=== PATIENT | male | born 1940 | race Caucasian/White ===

== ENCOUNTER 2023-09-15 14:22 | Inpatient (IN) | payer MEDICARE, SELFPAY ==
[2023-09-15] VITALS (11 sets, daily range): BP systolic 133–160; BP diastolic 72–103; PULSE 52–85; RESP 16–20; TEMP 36.2–37.2; O2SAT 98–100; BMI 18.1
--- NOTE | 2023-09-15 14:40 | EKG12_ITS ---
Test Reason : Blood Pressure : / mmHG Vent. Rate : 074 BPM Atrial Rate : 000 BPM P-R Int : 000 ms QRS Dur : 100 ms QT Int : 382 ms P-R-T Axes : 000 -83 -08 degrees QTc Int : 424 ms Atrial fibrillation Pulmonary disease pattern Incomplete right bundle branch block Left anterior fascicular block Abnormal ECG Confirmed by Jonathon Fletcher ([id number]), order editor ROBERT BONILLA ([id number]) on 09/16/2023 10:21:41 AM Referred By: Confirmed By:Jonathon Fletcher
--- NOTE | 2023-09-15 14:42 | EX.ED.DYSGE1 ---
HPI <LLUVIA Artis - Last Filed: 09/15/23 17:41> History of Present Illness Chief Complaint: Shortness of Breath Narrative Narrative: Patient is an 82-year-old male with history of Parkinson's disease, atrial fibrillation, hypertension, diabetes who presents to the emerged department for low pulse oxygenation. The patient has been feeling more short of breath over the last 3 weeks, much worse with exertion. Patient called into his PCP and was seen by the PA. When the PA walk the patient, the patient's pulse oxygenation was 60%. Patient is here for evaluation. He denies any cough, he denies any fever chills nausea or vomiting. Patient states when he is resting he is fine however when he gets up to move is when he feels that he is short of breath. [facility] <LLUVIA Artis - Last Filed: 09/15/23 17:41> [facility] Medical History (Updated 09/15/23 @ 17:40 by Gigi Seo) Atrial fibrillation Parkinson disease Hypertension Diabetes mellitus Home Medications ?Medication ?Instructions ?Recorded ?Last Taken ?Type amlodipine 2.5 mg tablet 2.5 mg PO DAILY BLOOD PRESSURE 09/15/23 09/15/23 History apixaban 5 mg tablet (Eliquis) 5 mg PO BID BLOOD THINNER 09/15/23 09/15/23 History carbidopa 25 mg-levodopa 100 mg 2 tab PO TID PARKINSONS 09/15/23 09/15/23 History tablet ipratropium bromide 42 mcg (0.06 2 spray intranasal TID RUNNY NOSE 09/15/23 09/14/23 History %) nasal spray lisinopril 10 mg tablet 10 mg PO DAILY BLOOD PRESSURE 09/15/23 09/15/23 History metoprolol tartrate 50 mg tablet 75 mg PO BID BLOOD PRESSURE 09/15/23 09/15/23 History mirtazapine 15 mg tablet 15 mg PO QHS DEPRESSION 09/15/23 09/15/23 History multivitamin (Daily Multi-Vitamin 1 tab PO DAILY HEALTH MAINTENANCE 09/15/23 09/15/23 History tablet) omeprazole 40 mg capsule,delayed 40 mg PO DAILY ACID REFLUX 09/15/23 09/15/23 History release pravastatin 10 mg tablet 10 mg PO DAILY CHOLESTEROL 09/15/23 09/15/23 History Allergy/AdvReac Type Severity Reaction Status Date / Time No Known Allergies Allergy Verified 09/15/23 14:25 Social History Smoking Status: Never smoker ROS <LLUVIA Artis - Last Filed: 09/15/23 17:41> ROS ED ROS Narrative Constitutional: Negative for fever, chills, weight loss. Positive for weakness Eyes: Negative for vision loss, vision change, double vision ENT: Negative for any sore throat, ear pain, congestion Cardiovascular: Negative for any palpitations. Positive for chest pain, chest tightness on exertion Respiratory: Negative for any cough, sputum production, hemoptysis, dyspnea, orthopnea. Dyspnea on exertion Gastrointestinal: Negative for any abdominal pain, nausea, vomiting, diarrhea, constipation, blood in stool, blood in vomit : Negative for any urinary frequency, dysuria, retention, blood in urine Muscle skeletal: Negative for any neck pain, back pain Neurological: Negative for any headache, syncope, dizziness Skin: Negative for any rashes, itching, abrasions, lacerations Psychiatric: Negative for any depression, anxiety, stress, suicidal ideation, homicidal ideation Hematologic: Negative for any excessive bruising, easy bleeding EXAM <LLUVAI Artis - Last Filed: 09/15/23 17:41> Physical Exam Narrative Exam Narrative: Vital signs reviewed. Patient's vital signs are stable although patient is at rest HEET: Head normocephalic atraumatic, TMs clear bilaterally. Posterior pharynx is clear, moist mucous membranes. Nares clear bilaterally. Neck: Supple with no lymphadenopathy or tenderness. No signs of meningismus. Cardiac: Regular rate and rhythm no murmurs gallops or rubs, equal peripheral pulses bilaterally. Respiratory: Diminished breath sounds to bilateral lower lobes. No chest tenderness. Abdomen: Soft, nontender, nondistended. No abdominal bruit or pulsatile masses. No hepatosplenomegaly Extremities: No peripheral edema, no signs of gross trauma or deformity. Active full range of motion of all extremities. Neuro: Cranial nerves II through XII intact, no focal neurological deficits. Skin: Clean dry and intact with no rash, purpura, petechiae, vesicles or pustules. Backs/flank: No CVA tenderness, no midline spinal tenderness, no deformity. Psych: Normal mood and affect. No SI, HI or acute psychosis. Const Vital Signs: 09/15/23 14:23 09/15/23 14:25 09/15/23 14:40 Temperature 97.2 F L 97.8 F Temperature Source Temporal Oral Pulse Rate 52 L 80 Respiratory Rate 18 16 Respiratory Effort Respiratory Depth Respiratory Pattern Blood Pressure 141/99 H 145/88 H Blood Pressure Mean 113 107 Pulse Ox 100 100 Oxygen Delivery Method Room Air Room Air 09/15/23 15:25 09/15/23 15:42 09/15/23 16:00 Temperature 98.0 F 98.3 F Temperature Source Oral Oral Pulse Rate 85 75 Respiratory Rate 16 16 Respiratory Effort Normal Short of Breath Respiratory Depth Normal Respiratory Pattern Normal Blood Pressure 147/93 H 142/95 H Blood Pressure Mean 111 110 Pulse Ox 100 100 Oxygen Delivery Method Room Air Room Air 09/15/23 16:22 Temperature Temperature Source Pulse Rate 79 Respiratory Rate 16 Respiratory Effort Respiratory Depth Respiratory Pattern Blood Pressure 160/73 H Blood Pressure Mean 102 Pulse Ox 98 Oxygen Delivery Method Room Air Positive cachectic General Appearance ED: cachectic Nutritional Appearance: cachectic <Dr. Evin Reece DO - Last Filed: 09/15/23 22:26> Physical Exam Const Vital Signs: 09/15/23 14:23 09/15/23 14:25 09/15/23 14:40 Temperature 97.2 F L 97.8 F Temperature Source Temporal Oral Pulse Rate 52 L 80 Respiratory Rate 18 16 Respiratory Effort Respiratory Depth Respiratory Pattern Blood Pressure 141/99 H 145/88 H Blood Pressure Mean 113 107 Pulse Ox 100 100 Oxygen Delivery Method Room Air Room Air 09/15/23 15:25 09/15/23 15:42 09/15/23 16:00 Temperature 98.0 F 98.3 F Temperature Source Oral Oral Pulse Rate 85 75 Respiratory Rate 16 16 Respiratory Effort Normal Short of Breath Respiratory Depth Normal Respiratory Pattern Normal Blood Pressure 147/93 H 142/95 H Blood Pressure Mean 111 110 Pulse Ox 100 100 Oxygen Delivery Method Room Air Room Air 09/15/23 16:22 Temperature Temperature Source Pulse Rate 79 Respiratory Rate 16 Respiratory Effort Respiratory Depth Respiratory Pattern Blood Pressure 160/73 H Blood Pressure Mean 102 Pulse Ox 98 Oxygen Delivery Method Room Air MDM <LLUVIA Artis - Last Filed: 09/15/23 17:41> MDM Lab Data Labs: Laboratory Results - last 24 hr 09/15/23 15:00 WBC 7.8 RBC 4.20 L Hgb 12.3 L Hct 38.6 L MCV 91.9 MCH 29.3 MCHC 31.9 L RDW Std Deviation 50.4 H RDW Coeff of Seth 15.0 H Plt Count 237 MPV 9.3 Immature Gran % (Auto) 0.500 Neut % (Auto) 70.7 H Lymph % (Auto) 21.9 [place] % (Auto) 6.1 Eos % (Auto) 0.5 Baso % (Auto) 0.3 Absolute Neuts (auto) 5.5 Absolute Lymphs (auto) 1.71 Nucleated RBC % 0 Sodium 135 L Potassium 4.1 Chloride 103 Carbon Dioxide 29.0 Anion Gap 3 L BUN 15 Creatinine 0.98 Estim Creat Clear Calc 49.96 Est GFR (MDRD) Af Amer 94 Est GFR (MDRD) Non-Af 78 BUN/Creatinine Ratio 15.3 Glucose 103 Calcium 9.2 Troponin I High Sens 11 B-Natriuretic Peptide 788.5 H Radiography Diagnostic Testing: Clinical Impression(s) from Imaging Studies Chest X-Ray 09/15/23 15:50 IMPRESSION: Right basilar infiltrate. Electronically Signed: Davon Hardy DO at 16:10 EDT Reading Location ID and State: [facility] / [place] Tel [phone], Service support , EKG Atrial fibrillation: Attestation: I personally reviewed and interpreted this EKG as follows: Comments: Atrial fibrillation rate of 74 bpm QRS duration 100 ms, no acute ST elevation, no acute infarct noted. Treatment and Re-Evaluation :: Differential diagnosis includes however is not limited to: Community-acquired pneumonia, PE, CHF, lung cancer, acute on chronic atrial fibrillation, fluid overload Patient at rest does not appear to be in any distress, patient's vital signs are stable while the patient is at rest. Patient will receive a full cardiac and respiratory workup. Patient will receive a two-view chest x-ray, laboratory values including CBC, BMP, BNP as well is a troponin. All radiologic examinations were read, reviewed by the emergency department attending. From these reads, a plan of care will be put in place. Patient's laboratory values show a normal CBC, patient's chemistries were unremarkable, troponin was negative at 11. Patient's chest x-ray two-view inter by ER physician shows a right basilar infiltrate. Patient states he has been coughing how is been unable to get any production. He states he been feeling worse over the last 3 weeks. Patient was ambulated here and on room air he dropped to 85%. Secondary to the 60% pulse oxygenation at his PCPs office, the 85% here, I do believe the patient would benefit from admission. Patient be given IV antibiotics, Rocephin, Zithromax. Patient will be admitted to the hospital. <Dr. Evin Reece DO - Last Filed: 09/15/23 22:26> [facility] Lab Data Attestation: I reviewed the patient's lab results. Labs: Laboratory Results - last 24 hr 09/15/23 15:00 WBC 7.8 RBC 4.20 L Hgb 12.3 L Hct 38.6 L MCV 91.9 MCH 29.3 MCHC 31.9 L RDW Std Deviation 50.4 H RDW Coeff of Seth 15.0 H Plt Count 237 MPV 9.3 Immature Gran % (Auto) 0.500 Neut % (Auto) 70.7 H Lymph % (Auto) 21.9 [place] % (Auto) 6.1 Eos % (Auto) 0.5 Baso % (Auto) 0.3 Absolute Neuts (auto) 5.5 Absolute Lymphs (auto) 1.71 Nucleated RBC % 0 Sodium 135 L Potassium 4.1 Chloride 103 Carbon Dioxide 29.0 Anion Gap 3 L BUN 15 Creatinine 0.98 Estim Creat Clear Calc 49.96 Est GFR (MDRD) Af Amer 94 Est GFR (MDRD) Non-Af 78 BUN/Creatinine Ratio 15.3 Glucose 103 Calcium 9.2 Troponin I High Sens 11 B-Natriuretic Peptide 788.5 H Radiography Diagnostic Testing: Clinical Impression(s) from Imaging Studies Chest X-Ray 09/15/23 15:50 IMPRESSION: Right basilar infiltrate. Electronically Signed: Davon Hardy DO at 16:10 EDT Reading Location ID and State: [facility] / [place] Tel [phone], Service support , Treatment and Re-Evaluation :: Differential diagnosis includes however is not limited to: Community-acquired pneumonia, PE, CHF, lung cancer, acute on chronic atrial fibrillation, fluid overload Patient at rest does not appear to be in any distress, patient's vital signs are stable while the patient is at rest. Patient will receive a full cardiac and respiratory workup. Patient will receive a two-view chest x-ray, laboratory values including CBC, BMP, BNP as well is a troponin. All radiologic examinations were read, reviewed by the emergency department attending. From these reads, a plan of care will be put in place. Patient's laboratory values show a normal CBC, patient's chemistries were unremarkable, troponin was negative at 11. Patient's chest x-ray two-view inter by ER physician shows a right basilar infiltrate. Patient states he has been coughing how is been unable to get any production. He states he been feeling worse over the last 3 weeks. Patient was ambulated here and on room air he dropped to 85%. Secondary to the 60% pulse oxygenation at his PCPs office, the 85% here, I do believe the patient would benefit from admission. Patient be given IV antibiotics, Rocephin, Zithromax. Patient will be admitted to the hospital. Attending note: Patient seen and evaluated with acrobatic dancer. I perform my own [id number] evaluation. I agree with the plan of work-up. Three-view history of cough worsening dyspnea with exertion. PCP office reported pulse ox 60% with ambulation. Arrived at rest normal lung sounds pulse ox 100% on room air. Workup initiated, 2 view chest x-ray interpreted by myself read by radiology right basilar infiltrate. White count is normal. Patient ambulated pulse ox dropped to 85% on room air. Placed on oxygen. Rocephin and Zithromax started. Patient admitted to medicine service. Discharge Plan Dx/Rx/DC Orders Clinical Impression: Community acquired pneumonia, Hypoxia, Weakness Disposition Disposition: Acute Care Hospital [facility] Discharge Date/Time: 09/15/23 17:48
[2023-09-15 15:08] LABS: Absolute Lymphocyte Count 1.71 X10^3/uL (0.83-4.51); Absolute Neutrophil Count 5.5 X10^3/uL (2.0-7.7); Basophil# 0.02 X10^3/uL; Basophil% 0.3 % (0-1); Eosinophil# 0.04 X10^3/uL; Eosinophils% 0.5 % (0-5); Hematocrit 38.6 % (40-54); Hemoglobin 12.3 g/dL (13.0-16.5); Lymphocyte # 1.71 X10^3/ul (0.83-4.51); Lymphocyte % 21.9 % (19-41); Mean Corp Hgb Conc 31.9 g/dL (32-36); Mean Corpuscular Hgb 29.3 pg (27.0-32.0); Mean Corpuscular Volume 91.9 fL (80-94); Mean Platelet Vol. 9.3 fl (6.2-12.0); Monocyte# 0.48 X10^3/uL; Monocyte% 6.1 % (0-10); NRBC Flagged by Analyzer 0 % (0-5); Neutrophil # 5.53 X10^3/uL (2.7-7.7); Neutrophil % 70.7 % (47-70); Platelet Count 237 K/mm3 (150-450); RBC Distribution Width SD 50.4 fl (35.1-43.9); White Blood Count 7.8 K/mm3 (4.4-11.0)
[2023-09-15 15:26] LABS: Anion Gap 3 (5-15); BUN 15 mg/dL (7-18); BUN/Creat Ratio 15.3 RATIO (10-20); Calcium,Total 9.2 mg/dL (8.5-10.1); Chloride 103 mmol/L (98-107); Creatinine, Serum 0.98 mg/dL (0.70-1.30); EST Glomerular Filtration Rate 78 mL/min (>60); Est Glom Filt Rate - Afr Amer 94 mL/min (>60); Estimated Creatinine Clearance 49.96 ml/min; Glucose 103 mg/dL (74-106); Potassium 4.1 mmol/L (3.5-5.1); Sodium Level 135 mmol/L (136-145); Troponin-I HS 11 pg/mL (3.0-78.0)
--- NOTE | 2023-09-15 15:50 | RAD_ITS ---
INDICATION: shortness of breath EXAMINATION/TECHNIQUE: X-RAY - XR Chest 2 Views COMPARISON: FINDINGS: LINES/DEVICES: None. LUNGS: There is a right basilar infiltrate. No pneumothorax. MEDIASTINUM AND CARDIOVASCULAR STRUCTURES: Cardiac silhouette not enlarged. Central airways and mediastinal contour are unremarkable. BONES AND SOFT TISSUES: Degenerative vertebral changes. RAD/Chest PA and Lateral IMPRESSION: Right basilar infiltrate. Electronically Signed: Davon Hardy DO at 16:10 EDT ,
[2023-09-15] MEDS: Ceftriaxone 1 GM/50 ML BAG IV (16:55)
--- NOTE | 2023-09-15 17:03 | HP.PCM_ITS ---
HPI - General General Date of Admission: 09/15/23 Date of Service: 09/15/23 Chief Complaint: shortness of breath HPI Narrative FARRAH HAYES, is a 82 M with a PMH as outlined who presents via the ED on 09/15/2023 with a complaint of shortness of breath. He had been feeling short over the past 3 weeks, which worsened with exertion. He denied any cough, chest pain, palpitations, dizziness, nausea, vomiting or any other symptoms. Review of systems was otherwise negative. The shortness of breath was worsened by exertion. He denies any history of PE and has been cooperative with his Eliquis which he takes for A-fib. He says his most recent long distance travel was a drive to [place] and this was back in April 2023. He says he has lost about 90 pounds over the last year and he says this is due to his Parkinson's disease as he is not able to eat well and has had some dysphagia as well. Vitals in the ED were BP of 160/73, MD of 79, RR of 16 and temp of 98.3F. He was saturating at 98% on room air. CBC showed hb of 12.3, wbc of 7.8, platelets of 237.Chemistry showed sodium of 135, potassium of 4.1 nd Cr of 0.98. Initial troponin was negative and BNP was pending at time of my review. CXR showed a right basilar infiltrate and sputum was negative for covid, influenza A or B, or RSV. He is being admitted to be managed for hypoxia due to right lower lobe pneumonia [facility] Medical History (Updated 09/15/23 @ 17:40 by Gigi Seo) Atrial fibrillation Parkinson disease Hypertension Diabetes mellitus Home Medications ?Medication ?Instructions ?Recorded ?Last Taken ?Type amlodipine 2.5 mg tablet 2.5 mg PO DAILY BLOOD PRESSURE 09/15/23 09/15/23 History apixaban 5 mg tablet (Eliquis) 5 mg PO BID BLOOD THINNER 09/15/23 09/15/23 History carbidopa 25 mg-levodopa 100 mg 2 tab PO TID PARKINSONS 09/15/23 09/15/23 History tablet ipratropium bromide 42 mcg (0.06 2 spray intranasal TID RUNNY NOSE 09/15/23 09/14/23 History %) nasal spray lisinopril 10 mg tablet 10 mg PO DAILY BLOOD PRESSURE 09/15/23 09/15/23 History metoprolol tartrate 50 mg tablet 75 mg PO BID BLOOD PRESSURE 09/15/23 09/15/23 History mirtazapine 15 mg tablet 15 mg PO QHS DEPRESSION 09/15/23 09/15/23 History multivitamin (Daily Multi-Vitamin 1 tab PO DAILY HEALTH MAINTENANCE 09/15/23 09/15/23 History tablet) omeprazole 40 mg capsule,delayed 40 mg PO DAILY ACID REFLUX 09/15/23 09/15/23 History release pravastatin 10 mg tablet 10 mg PO DAILY CHOLESTEROL 09/15/23 09/15/23 History Allergy/AdvReac Type Severity Reaction Status Date / Time No Known Allergies Allergy Verified 09/15/23 14:25 Social History Smoking Status: Never smoker ROS Constitutional Constitutional: Reports fatigue, malaise and weakness; Denies anorexia, chills or fever(s) Eyes Eyes: Denies change in vision ENT HEENT: Denies dysphagia, headache(s), hearing loss, sore throat or throat swelling Cardiovascular Cardiovascular: Denies chest pain, edema, orthopnea, palpitations, paroxysmal nocturnal dyspnea or syncope Respiratory/Chest Respiratory/Chest: Reports shortness of breath with exertion; Denies cough, hemoptysis, shortness of breath at rest or wheezing Gastrointestinal Gastrointestinal: Denies constipation, diarrhea, nausea or vomiting Genitourinary Genitourinary: Denies dysuria Musculoskeletal Musculoskeletal: Denies back pain, limited range of motion, muscle weakness or neck pain Neurologic Neurologic: Denies confusion, dizziness, focal weakness, headache(s) or numbness Psychiatric Psychiatric: Denies anxiety or depression Hematologic/Lymphatic Hematologic/Lymphatic: Denies anemia Vital Signs Vital Signs Vital Signs: 09/15/23 14:23 09/15/23 14:25 09/15/23 14:40 Temperature 97.2 F L 97.8 F Temperature Source Temporal Oral Pulse Rate 52 L 80 Respiratory Rate 18 16 Respiratory Effort Respiratory Depth Respiratory Pattern Blood Pressure 141/99 H 145/88 H Blood Pressure Mean 113 107 Pulse Ox 100 100 Oxygen Delivery Method Room Air Room Air 09/15/23 15:25 09/15/23 15:42 09/15/23 16:00 Temperature 98.0 F 98.3 F Temperature Source Oral Oral Pulse Rate 85 75 Respiratory Rate 16 16 Respiratory Effort Normal Short of Breath Respiratory Depth Normal Respiratory Pattern Normal Blood Pressure 147/93 H 142/95 H Blood Pressure Mean 111 110 Pulse Ox 100 100 Oxygen Delivery Method Room Air Room Air 09/15/23 16:22 Temperature Temperature Source Pulse Rate 79 Respiratory Rate 16 Respiratory Effort Respiratory Depth Respiratory Pattern Blood Pressure 160/73 H Blood Pressure Mean 102 Pulse Ox 98 Oxygen Delivery Method Room Air Weight Weight: 134 lb Body Mass Index (BMI) 18.1 Physical Exam Const alert, oriented x3 and no apparent distress Constitutional Narrative: frail General Appearance: cooperative HEENT normocephalic, head/scalp atraumatic, moist oral mucous membranes and oropharynx normal Eyes PERRL and EOMs intact bilaterally Neck no lymphadenopathy and supple Lymph Lymphatic: no lymphadenopathy noted and no lymphedema noted Resp Resp Narrative: moderately diminished breath sounds bibasally, no wheezes or crackles. On room air. Cardio regular rate, regular rhythm, S1 normal heart sound, S2 normal heart sound and no murmurs GI normal to inspection, nondistended, normoactive bowel sounds, soft to palpation, non-tender and non-distended Extremity normal capillary refill, no clubbing, cyanosis or edema and no calf tenderness General Extremity: no tenderness to palpation of joints or extremities Skin General Skin Exam: no breakdown Neuro CN's II-XII intact bilaterally, no focal motor deficits, no sensory deficits noted and deep tendon reflexes 2+ bilaterally Motor Exam: strength 5/5 throughout and general weakness Psych thought process normal and cooperative Appearance: appropriate Results Lab / Micro Data 09/15/23 15:00 09/15/23 15:00 Labs: Laboratory Results - last 24 hr 09/15/23 15:00: WBC 7.8, RBC 4.20 L, Hgb 12.3 L, Hct 38.6 L, MCV 91.9, MCH 29.3, MCHC 31.9 L, RDW Std Deviation 50.4 H, RDW Coeff of Seth 15.0 H, Plt Count 237, MPV 9.3, Immature Gran % (Auto) 0.500, Neut % (Auto) 70.7 H, Lymph % (Auto) 21.9, [place] % (Auto) 6.1, Eos % (Auto) 0.5, Baso % (Auto) 0.3, Absolute Neuts (auto) 5.5, Absolute Lymphs (auto) 1.71, Nucleated RBC % 0, Sodium 135 L, Potassium 4.1, Chloride 103, Carbon Dioxide 29.0, Anion Gap 3 L, BUN 15, Creatinine 0.98, Estim Creat Clear Calc 49.96, Est GFR (MDRD) Af Amer 94, Est GFR (MDRD) Non-Af 78, BUN/Creatinine Ratio 15.3, Glucose 103, Calcium 9.2, Troponin I High Sens 11 Micro: Microbiology 09/15/23 15:40 Mucosa - Nasopharyngeal SARS-CoV-2, Influenza & RSV (PCR) - Final Imaging Radiology Impression Chest X-Ray 09/15/23 15:50 IMPRESSION: Right basilar infiltrate. Electronically Signed: Davon Hardy DO at 16:10 EDT , Assessment & Plan Assessment/Plan (1) Hypoxia: (2) Community acquired pneumonia: (3) Weakness: PLAN: Plan #Hypoxia due to community acquired pneumonia * admit to med surg. * check urine for strep and legionella. CHeck sputum culture * start on IV ceftriaxone and azithromycin * Hydrate gently with iVF NS @ 125cc/hr * breathing treatment with bronchodilators * titrate oxygen to maintain sats .90% * #Elevated BNP: * BNP 788.5. Patient however does not have any evidence of fluid overload though he does get short of breath with exertion. * Does not have a history of heart failure. * In light of this we will order 2D echo. * Stop IV fluids and diurese with Lasix to see if that will help with shortness of breath. * #Hypertension: on lisinopril and amlodipine. IV hydralazine prn #Parkinson's disease: * on levodopa-carbidopa. * Complains of weight loss of about 90 pounds over the last year which she states is due to dysphagia which he attributes to his Parkinson's disease. * Will consult speech therapy to evaluate for dysphagia. * He states he has seen speech therapy multiple times over the last year. * #Dysphagia: as above. #Depression: on mirtazapine. #hyperlipidemia: on statin DVT prophylaxis: lovenox Code status: full code * Patient counseled extensively about different types of CODE STATUS including full code, DNR CCA and DNR CCA. Patient elects to be full code. * Total dcan-pm-lnle time 17 minutes. Charges/Coding Visit Charges Inpatient E&M: 96389 Init Hosp L3 Procedures Hospitalists Procedures: 57110 Advncd Care Plan 30 Min
[2023-09-15] MEDS: Azithromycin 500 MG in Dextrose 5%-Water (250mL Bag) 250 ML 250 MG IV (17:41)
[2023-09-15 17:52] LABS: BNP,B-Type NATRIURETIC PEPTIDE 788.5 pg/mL (0-100)
--- NOTE | 2023-09-15 19:51 | ECHOD_ITS ---
Reason For Study: DYSPNEA Procedure This was a 2D Doppler, Color Flow transthoracic echocardiogram. Technically difficult due to body habitus. Definity deferred due to off axis windows. Exam performed portable in patient room. Left Ventricle Normal LV size. The estimated ejection fraction is 65 %. Unable to assess diastolic dysfunction. No regional wall motion abnormalities noted. Right Ventricle Normal RV size. Normal systolic function. Atria The left atrium is mildly enlarged. Normal right atrium. No doppler evidence for ASD. Mitral Valve There is no mitral valve stenosis. No mitral valve insufficiency. Tricuspid Valve There is no tricuspid stenosis. Trivial tricuspid valve insufficiency. Unable to estimate RV systolic pressure due to insufficient tricuspid regurgitant envelope. Aortic Valve Trisinus/trileaflet aortic valve. There is no aortic stenosis. No aortic valve insufficiency. Pulmonic Valve There is no pulmonic valvular stenosis. No pulmonic valve insufficiency. Great Vessels Normal aortic root. Pericardium/Pleural No pericardial effusion. MMode/2D Measurements & Calculations LVIDd: 2.9 cm IVSd: 1.1 cm LAV(MOD-bp): 69.6 ml LVIDs: 2.6 cm LVPWd: 1.3 cm LAV(MOD-bp) Indexed: 38.7 ml/m2 FS: 13.2 % LAV(MOD-sp2): 75.6 ml LAV(MOD-sp4): 67.7 ml TAPSE: 1.5 cm LA A4 area: 22.8 cm2 RA A4 area: 10.4 cm2 Doppler Measurements & Calculations MV E max terrance: 88.1 cm/sec Ao V2 max: 85.1 cm/sec LV V1 max: 62.3 cm/sec Ao max P.9 mmHg LV V1 max P.6 mmHg Ao V2 mean: 53.4 cm/sec LV V1 mean P.87 mmHg Ao mean P.4 mmHg LV V1 mean: 44.7 cm/sec Ao V2 VTI: 18.3 cm LV V1 VTI: 13.8 cm AV (velocity ratio): 0.75 ECHO/Echo Complete Interpretation Summary The estimated ejection fraction is 65 %. Unable to assess diastolic dysfunction. The left atrium is mildly enlarged. Ordering Physician: Sheela Quinn Referring Physician: JUANY PACHECO Performed By: Abena Deleon RCS
[2023-09-15] MEDS: Ipratropium Bromide 0.06% NASAL SPRAY 2 SPRAY NASAL (21:37)
[2023-09-15] MEDS: Glycerin/Hypromellose/PEG400 15 ml Bottle 1 DRP EACH EYE (21:40)
[2023-09-15] MEDS: Pravastatin 20 MG Tablet 10 MG PO (21:41)
[2023-09-15] MEDS: APIXABAN 5 MG TABLET PO (21:41)
[2023-09-15] MEDS: Metoprolol Tartrate 50 MG Tablet 75 MG PO (21:42)
[2023-09-15] MEDS: Mirtazapine 15 MG Tablet PO (21:42)
[2023-09-15] MEDS: Furosemide 40 MG/4 ML Vial IV (21:43)
[2023-09-16] MEDS: Acetaminophen 325 MG Tablet 650 MG PO (02:08)
[2023-09-16 02:11] VITALS: BP 115/90; PULSE 92; RESP 18; TEMP 36.8; O2SAT 95
[2023-09-16] MEDS: Ipratropium Bromide 0.06% NASAL SPRAY 2 SPRAY NASAL ×3 (06:49→21:11)
[2023-09-16] MEDS: Carbidopa/Levodopa 25/100 Tablet PO ×3 (06:50→15:33)
[2023-09-16 07:16] LABS: Absolute Neutrophil Count 3.8 X10^3/uL (2.0-7.7); Basophil# 0.04 X10^3/uL; Basophil% 0.6 % (0-1); Eosinophil# 0.12 X10^3/uL; Eosinophils% 1.8 % (0-5); Hematocrit 34.4 % (40-54); Hemoglobin 11.1 g/dL (13.0-16.5); Lymphocyte % 32.4 % (19-41); Mean Corp Hgb Conc 32.3 g/dL (32-36); Mean Corpuscular Hgb 29.6 pg (27.0-32.0); Mean Corpuscular Volume 91.7 fL (80-94); Mean Platelet Vol. 9.2 fl (6.2-12.0); Monocyte# 0.64 X10^3/uL; Monocyte% 9.4 % (0-10); NRBC Flagged by Analyzer 0 % (0-5); Neutrophil # 3.78 X10^3/uL (2.7-7.7); Neutrophil % 55.5 % (47-70); Platelet Count 230 K/mm3 (150-450); RBC Distribution Width CV 14.9 % (11.6-14.6); RBC Distribution Width SD 49.6 fl (35.1-43.9); Red Blood Count 3.75 M/mm3 (4.6-6.2); White Blood Count 6.8 K/mm3 (4.4-11.0)
[2023-09-16 07:19] VITALS: O2SAT 96
[2023-09-16 07:47] LABS: Anion Gap 4 (5-15); BUN 16 mg/dL (7-18); BUN/Creat Ratio 15.5 RATIO (10-20); Calcium,Total 9.3 mg/dL (8.5-10.1); Chloride 102 mmol/L (98-107); Creatinine, Serum 1.03 mg/dL (0.70-1.30); EST Glomerular Filtration Rate 73 mL/min (>60); Est Glom Filt Rate - Afr Amer 89 mL/min (>60); Estimated Creatinine Clearance 47.54 ml/min; Glucose 95 mg/dL (74-106); Potassium 3.6 mmol/L (3.5-5.1); Sodium Level 138 mmol/L (136-145)
--- NOTE | 2023-09-16 08:11 | CT_ITS ---
STUDY: CTA CHEST REASON FOR EXAM: Male, 82 years old. Abnormal chest x-ray RADIATION DOSAGE (If Supplied By Facility): CTDIvol = ( 14.24 ) mGy, DLP = ( 350.28 ) mGycm TECHNIQUE: The examination was performed with the intravenous administration of IV 75mL Isovue-370. Post-processing of the angiographic images was performed, with multiplanar reformation and 3D reconstruction. Individualized dose optimization techniques were used for this CT. COMPARISON: Chest x-ray. FINDINGS: Normal enhancement of the main pulmonary artery and right and left pulmonary arteries. Normal enhancement of the bilateral peripheral pulmonary arteries. There is no demonstrated pulmonary embolism. There is atherosclerotic calcification of the aortic arch with tortuosity. There is no demonstrated aortic dissection. There are calcifications of the coronary arteries. Normal mediastinum. Normal hilar regions. Normal visualized trachea and bronchi. The lungs are well expanded. There is calcified granuloma in the left lower lobe. There are mild lower lung groundglass increased opacities. There is right middle lobe airspace consolidation. There is moderate right pleural effusion. Normal chest wall structures. There are degenerative changes of thoracic spine. There is increased kyphosis of the thoracic spine. Normal visualized upper abdomen. CT/CTA Chest W/WO Contrast IMPRESSION: CTA chest examination, without a demonstrated pulmonary embolism or arterial dissection. Right middle lobe infiltrate. Right pleural effusion. Electronically Signed: Edgar Souza MD at 9:09 EDT ,
[2023-09-16 09:23] VITALS: BP 129/74; PULSE 71; RESP 16; TEMP 36.8; O2SAT 95
[2023-09-16] MEDS: Furosemide 40 MG/4 ML Vial IV ×2 (09:36→17:22)
[2023-09-16] MEDS: APIXABAN 5 MG TABLET PO (09:36)
[2023-09-16] MEDS: Multivitamins,Therapeutic Tablet 1 TABLET PO (09:36)
[2023-09-16 09:37] VITALS: PULSE 71
[2023-09-16] MEDS: Metoprolol Tartrate 50 MG Tablet 75 MG PO ×2 (09:37→21:11)
[2023-09-16] MEDS: Pantoprazole Sodium 40 MG Tablet PO (09:38)
[2023-09-16] MEDS: Lisinopril 10 MG Tablet PO (09:38)
[2023-09-16] MEDS: amLODIPine 2.5 MG Tablet PO (09:38)
[2023-09-16] MEDS: Ensure Plus High Protein 120 ML LIQUID PO (09:46)
--- NOTE | 2023-09-16 13:05 | SP.MBSS_ITS ---
Modified Barium Swallow Patient Information Study Date: 09/16/23 Study Time: 12:30 Direct Billable Minutes: 89 Total Minutes procedure & reportin Diagnosis: PNA J18.9; Hypoxia R09.02 Referring Physician: Shu Durbin Reason for Referral: Objectively assess swallow function, assess risk for aspiration, and determine recommendations for least restrictive diet textures and compensatory strategies to improve safety of swallow. Medical History: PMH: Parkinson's disease, A fib, HTN, Diabetes The patient presented to [facility] ED 09/15/23 with SOB over the past few weeks, which worsened with exertion. He reported that he has lost about 90 pounds over the last year and he says this is due to his Parkinson's disease as he is not able to eat well and has had some dysphagia. Chest CT 09/15/23 IMPRESSION: CTA chest examination, without a demonstrated pulmonary embolism or arterial dissection. Right middle lobe infiltrate. Right pleural effusion. CXR 09/15/23 showed a right basilar infiltrate. He was being admitted to be managed for hypoxia due to right lower lobe pneumonia. He was referred for ST consult due to concerns for swallowing difficulty. Patient reports having had EGD and 2 MBSS with the most recent completed in [place] in March 2024. He reported no esophageal findings per patient report. He reported during modified barium swallow study getting 1 sip of liquids, aspirating, then he had the study stopped. He had a physician and speech therapist recommend thickener; however, he does not believe thickener was trialed during the barium swallow test. He had speech therapy for strengthening of his swallow and was recommended for chin tuck. He has been consuming thin liquids at home. BSE 09/16/23 recommended minced and moist textures / thin liquids with recommendation for MBSS this afternoon. Current Diet Ordered: Minced and moist textures / Thin liquids Dentition: Edentulous Mental Status: Impaired (Required verbal repetition to execute recommended strategies during the assessment) Respiratory Status: Oxygenating on Room Air Penetration-Aspiration Scale Penetration-Aspiration Scale: OBJECTIVE ASSESSMENT OF SWALLOW FUNCTION (QUANTITATIVE ? PER TRIAL): PENETRATION / ASPIRATION SCALE (OVALLE): 1 = does not enter airway 2 = enters airway/above vocal folds/ejected 3 = enters airway/above vocal folds/not ejected 4 = enters airway/contacts vocal folds/ejected 5 = enters airway/contacts vocal folds/not ejected 6 = enters airway/below vocal folds/ejected 7 = enters airway/below vocal folds/not ejected despite effort 8 = enters airway/below vocal folds/no effort VIDEOFLOROSCOPIC SCALE SCORE (OVALLE): Grade I = aspiration of material that has penetrated into the laryngeal vestibule, intact cough reflex Grade II = aspiration < 10 % of the bolus, intact cough reflex Grade III = aspiration of < 10 % of the bolus, reduced cough reflex or aspiration of > 10 % of the bolus, intact cough reflex Grade IV = aspiration of > 10 % of the bolus, reduced cough reflex Penetration-Aspiration Scale Score Thin Liquid via teaspoon: Result: 8= enters airway/below vocal folds/no effort Thin Liquid via teaspoon Chin tuck: Result: 8= enters airway/below vocal folds/no effort [place] Thick Liquid via small single sip: cup: Result: 3= enters airways/above vocal folds/not ejected (post prandial aspiration of previous trial) Pudding via teaspoon: Result: 1= does not enter airway Comment: Esophageal screen - Retention of pudding in upper esophageal sphincter with retrograde flow through the UES to the pyriforms. Thin Liquid via small single sip: cup Chin tuck: Result: 5= enters airways/contacts vocal folds/not ejected Comment: Cued cough and re-swallow, which the patient executed delayed after verbal repetition of instruction from STRATEGIC PLANNING SPECIALIST [place] Thick Liquid via small single sip: cup Chin tuck: Result: 8= enters airway/below vocal folds/no effort Thin Liquid via single cup sip with chin tuck and cough and re-swallow: Result: 5= enters airways/contacts vocal folds/not ejected Honey Thick Liquid via teaspoon: Result: 7= enters airways/below vocal folds/not ejected despite effort Comment: Post prandial aspiration of previous trial, as well. STRATEGIC PLANNING SPECIALIST repositioned the patient to be slightly reclined so that his neck posture was more upright for remaining trials due to kyphotic posture Thin Liquid via small single sip: cup Effortful swallow: Result: 7= enters airways/below vocal folds/not ejected despite effort [place] Thick Liquid via small single sip: cup Trial 2: Result: 7= enters airways/below vocal folds/not ejected despite effort [place] Thick Liquid via small single sip: cup Chin tuck Trial 2: Result: 5= enters airways/contacts vocal folds/not ejected Oral Phase Labial Seal: Interlabial escape, no progression to anterior lip Tongue Control During Bolus Hold: Posterior escape of greater than half of bolus Bolus Transport/Lingual Motion: Repetitive/disorganized tongue motion Oral Residue: Residue collection on oral structures Pharyngeal Phase Initiation of Pharyngeal Swallow: Bolus head in pyriforms Soft Palate Elevation: Trace column of contrast/air between soft palate and pharyngeal wall Laryngeal Elevation: Partial superior movement thyroid cart/partial apprx aryt- epig petiole Anterior Hyoid Excursion: Partial anterior movement Epiglottic Movement: Partial inversion Laryngeal Vestibule Closure at Height of Swallow: Incomplete; narrow column of air/contrast in laryngeal vestibule Pharyngeal Stripping Wave: Present - diminished Pharyngoesophageal Segment Opening: Minimal distension and minimal duration; marked obstruction of flow (Thin by tsp) Tongue Base Retraction: Wide column of contrast between tongue base & post. pharyngeal wall Pharyngeal Residue: Majority of contrast within or on pharyngeal structures (pudding, thin by tsp trial 1) Esophageal Phase Esophageal Clearance: Esophageal retention w/ retrograde flow through pharyngoesophageal seg (pudding) Diagnosis/Impression Diagnosis: Moderate-severe oropharyngeal dysphagia R13.12 Impression: The oral phase is primarily marked by... -Decreased bolus control with >1/2 of the bolus spilling posteriorly to the pyriforms prior to swallow onset most notable by thin liquids via cup with effortful swallow. -Lingual pumping for A-P transport of pudding -Mild oral residue of pudding after the swallow, which mostly cleared with independent initiation of multiple swallows. -Did not complete cookie trial due to concerns for choking with poor pharyngeal clearance of pudding. The pharyngeal phase is primarily marked by... -Decreased airway closure during the swallow due to decreased anterior hyoid excursion, partial epiglottic inversion, and decreased laryngeal elevation. -Moderately-severely decreased tongue base retraction, moderately-severely decreased UES opening/duration, and minimal pharyngeal stripping wave with resulting moderate-severe pharyngeal residues after the swallow most notable with pudding. Multiple swallows helped to clear pudding trial. -SILENT aspiration of thin liquids by tsp, thin liquids by cup, nectar/mildly thick liquids by cup. Overt aspiration of thin liquids by cup w/ effortful swallow, honey thick by tsp, and nectar/mildly thick liquids by cup. Use of cough and re-swallow did not prevent aspiration, but it was somewhat effective in decreasing residues remaining in the laryngeal vestibule. The esophageal phase is primarily marked by... -Esophageal retention of pudding in upper esophageal sphincter with retrograde flow through the UES to the pyriforms. Recommendations Diet: Mechanical Soft Textures (Minced and Moist Textures - IDDSI Level 5) and [place]-thick Liquids (Mildly Thick Liquids - IDDSI Level 2) Compensatory Strategies: Small Bites (Chin tuck and 3 swallows per bite), Small Sips (Chin tuck, cough and re-swallow each sip), Slow Rate, Alternate bites/solids and sips/liquids, Sitting upright (Neck upright 90 degrees [Pt slightly reclined]) and Remain sitting upright for 30 minutes after PO intake Supervision: 1:1 Close Supervision Recommend Repeat Modified Barium Swallow: TBD Need for Skilled Speech Therapy Services: Yes Comment: -Train the patient in use of strategies to decrease risk for aspiration. -Ongoing assessment of diet tolerance of recommended textures. Would not advance solids prior to GI intervention for poor UES opening/duration and repeat MBSS. -Train the patient in oropharyngeal exercise program to improve bolus control, tongue base retraction, airway closure, and UES opening/duration (lingual re sistance, Samantha, Vanessa, Shaker). Recommended Referrals: GI Consult (Poor UES opening/duration) Education Completed: 1. Described result of evaluation., 2. Pt understands evaluation & agrees with goals and treatment plan. and 7. Pt requires further education on strategies & risks. Status Active ST Patient: Active Contact Information [facility] Speech Therapy:: Aruna Reeves M.A. [facility]-STRATEGIC PLANNING SPECIALIST? Speech-Language Pathologist?? [facility] [address]?? [place] [address]?? [email or web address]?? [phone]
--- NOTE | 2023-09-16 15:15 | CASEMGMT ---
Addendum entered by Elizabeth Graf 09/16/23 16:37: SUSANNAH GILES into pt room, pt son at bedside. Discussed HHC with pt, he declines. Son in background shaking his head yes. Discussed how HHC could benefit pt, pt declines still. Pt is aware that if he changes his mind once home, he can contact his PCP. Original Note: SUSANNAH GILES Assessment: Face to Face with pt for initial transition planning/care coordination assessment. SUSANNAH GILES introduced self and role at [facility], pt voices understanding and consents to assessment. Pt is A&O x4 and answers all questions appropriately at this time. Pt sitting up in chair in no distress on RA. Care providers, pharmacy, and demographics verified/updated. Admitting Dx: hypoxia, CAP PCP:Jose Maria Specialists:gab Granados Pharmacy: [facility] Insurance: [facility] Prescription Benefit: yes LNOK: Yousif Esquivel, son Living Arrangements: Pt lives with oldest son in a two story home with 3 steps to enter. Pt reports he is I in ADL's and his son performs IADLs. Pt denies concerns at home. Transportation: Pt drives self and denies concerns with transportation. DME:25 grab bars spread throughout home, 2 rollators, walker, cane, stairlift to the upstairs, BGM with sufficient supply of strips and lancets although pt states he was told he does not need to check any longer. HHC/SNF:Denies hx of HHC, has been to SNF in [place] Pt states no concerns with going home at time of dc. Pt states son is able to assist as needed. Pt uses rollator and feels his strength is baseline. Pt states no further concerns/needs. CM to follow. Advised pt to ask CM if any further question/concerns/needs arise, voices understanding. Pt Goal: Home Plan: Home Ye DAVALOS CM
[2023-09-16] MEDS: Glycerin/Hypromellose/PEG400 15 ml Bottle 1 DRP EACH EYE (15:23)
--- NOTE | 2023-09-16 15:28 | PCM.PN.HOSP ---
Reason for Visit Reason for Visit: Shortness of breath Subjective Subjective Mr. Esquivel is an 82-year-old white male with a history of Parkinson disease who presented to emergency department at [facility] for shortness of breath on 09/16/2023. On presentation he reported that he had been feeling more short of breath for about 3 weeks which was worse with exertion. He denied any cough, chest pain, palpitations, nausea, vomiting or any other significant symptoms associated with the shortness of breath. He had denied any history of pulmonary embolism and takes Eliquis at baseline for A-fib and has been compliant with this. He indicated he lost about 90 pounds over the last year and feels it is related to his Parkinson disease. He states he has difficulty eating and at times he will cough after drinking. He also complained that he feels like things intermittently will get stuck in his upper throat while he is swallowing. Vital signs on presentation demonstrated temperature of 98.3, blood pressure was 160/73, heart rate was 79, respiratory rate 16 oxygen saturations were 98% on room air. His CBC showed a no leukocytosis but mild L shift. He had a mild anemia. His BMP was unremarkable. Troponin was 11. BNP was markedly elevated at 788.5. Chest x-ray had a right lower lobe infiltrate. We obtained a CTA of his chest as we did want to rule out a mass that demonstrated a right middle lobe infiltrate as well as a small right pleural effusion. No PE was identified. EKG showed atrial fibrillation with an incomplete right bundle branch block and a left anterior fascicular block with no ST-T wave changes concerning for acute ischemia. COVID/flu/RSV was unremarkable and strep pneumo and Legionella antigens were obtained and unremarkable. Sputum culture was able to be obtained and Gram stain is currently showing gram-positive rods and gram-positive cocci with no white blood cells. He was initially admitted to the floor and placed on IV Lasix twice daily with his elevated BNP as well as antibiotics with ceftriaxone and azithromycin. With a negative Legionella antigen and concern for aspiration he has been transition to Unasyn and speech therapy evaluated the patient. Patient did confirm today that he has been having swallowing difficulties with coughing after eating and drinking. He did confirm that he has lost a significant amount of weight but states his oral intake has been poor because he is not able to eat as much because he gets fatigued quickly with his Parkinson's. Objective Data Objective Data Vital Signs: Vital Signs Temp Pulse Resp BP Pulse Ox O2 Del Method O2 Flow Rate 98.2 F 71 16 129/74 H 95 Room Air 2 09/16/23 09:23 09/16/23 09:37 09/16/23 09:23 09/16/23 09:23 09/16/23 09:23 09/16/23 09:23 09/15/23 21:25 Oxygen Flow Rate (L/min) 2 Oxygen Delivery Method Room Air Weight: 60.781 kg Body Mass Index (BMI) 18.1 Intake & Output: Intake and Output for Last 24 Hours 09/14/23 09/15/23 09/16/23 23:59 23:59 23:59 Intake Total 305 / 305 Output Total 625 / 625 1125 / 1125 Balance -320 / -320 -1125 / -1125 Medical Nutrition Assessment Dietitian: Malnutrition Criteria Met Start: 09/16/23 14:57 Freq: Status: Active Protocol: Document 09/16/23 14:57 SLA (Rec: 09/16/23 14:57 SLA [id number]) Nutrition Malnutrition Evidence of Malnutrition Exists Yes Malnutrition (severe): Chronic Evidenced By Suboptimal Energy Intake ( Severe),Weight Loss (Severe), Physical Changes (Severe) Clinical Problem Chronic Disease or Condition Related Malnutrition Etiology related to Parkinsons dz and issues w/ dysphagia making it difficulty to consume adequate energy Signs/Symptoms as evidenced by 33.1% unintended wt loss, having <50 % po intake of est nutritional needs, obvious fat loss/ muscle wasting throughout body and BMI 18.1 Status Active Problem Biting/Chewing Difficulty Etiology swallowing difficulty d/t issues w/ dysphagia Signs/Symptoms as evidenced by need for mech altered diet w/ thickened liquids Status Active Problem Recommendation Dietitian Recommendations/Changes Will change diet to liberal Regular - consistency per SLIDING JOINT MAKER; Rec liberalize fluid restriction as medically able Continue ensure plus high protein tid w/ medpass Add 120 ml ensure clear tid w/ meals for increased nutrition if consumed. Lab / Micro Data 09/16/23 06:36 09/16/23 06:36 Labs: Laboratory Results - last 24 hr 09/15/23 15:00: B-Natriuretic Peptide 788.5 H 09/16/23 06:36: WBC 6.8, RBC 3.75 L, Hgb 11.1 L, Hct 34.4 L, MCV 91.7, MCH 29.6, MCHC 32.3, RDW Std Deviation 49.6 H, RDW Coeff of Seth 14.9 H, Plt Count 230, MPV 9.2, Immature Gran % (Auto) 0.300, Neut % (Auto) 55.5, Lymph % (Auto) 32.4, Bertie % (Auto) 9.4, Eos % (Auto) 1.8, Baso % (Auto) 0.6, Absolute Neuts (auto) 3.8, Absolute Lymphs (auto) 2.20, Nucleated RBC % 0, Sodium 138, Potassium 3.6, Chloride 102, Carbon Dioxide 32.0, Anion Gap 4 L, BUN 16, Creatinine 1.03, Estim Creat Clear Calc 47.54, Est GFR (MDRD) Af Amer 89, Est GFR (MDRD) Non-Af 73, BUN/Creatinine Ratio 15.5, Glucose 95, Calcium 9.3 Micro: Microbiology 09/15/23 22:40 Sputum, Expectorated/Coughed Gram Stain - Final 09/15/23 22:40 Urine, Clean Catch Legionella Antigen - Final 09/15/23 22:40 Urine, Clean Catch Streptococcus pneumoniae Antigen (M - Final 09/15/23 15:40 Mucosa - Nasopharyngeal SARS-CoV-2, Influenza & RSV (PCR) - Final Radiography Diagnostic Testing: Radiology Impression Chest X-Ray 09/15/23 15:50 IMPRESSION: Right basilar infiltrate. Electronically Signed: Davon Hardy DO at 16:10 EDT Reading Location ID and State: [id number] / [place] Tel [phone], Service support , Echocardiogram 09/15/23 19:51 Interpretation Summary The estimated ejection fraction is 65 %. Unable to assess diastolic dysfunction. The left atrium is mildly enlarged. Ordering Physician: Sheela Quinn Referring Physician: JUANY PACHECO Performed By: Abena Deleon RCS Chest CTA 09/16/23 08:11 IMPRESSION: CTA chest examination, without a demonstrated pulmonary embolism or arterial dissection. Right middle lobe infiltrate. Right pleural effusion. Electronically Signed: Edgar Souza MD at 9:09 EDT , Physical Exam Const alert, oriented x3 and no apparent distress; Negative for average body habitus, healthy appearing or well nourished Constitutional Narrative: Cachectic, elderly, white male, sitting up in a chair at the bedside, currently appears comfortable and chronically ill but not acutely ill, not toxic HEENT head/scalp atraumatic and moist oral mucous membranes HEENT Narrative: Dentition is poor, Mallampati is 1, no thrush, significant temporal wasting Eyes PERRL, EOMs intact bilaterally and conjunctivae normal Eyes Narrative: No scleral icterus Neck no lymphadenopathy and supple Neck Narrative: Very prominent neck veins and neck anatomy due to decrease subcutaneous fat, no thyroid abnormality or nodules noted on exam, trachea is midline Resp normal respiratory effort, no retractions and no use of accessory muscles Resp Narrative: Diminished in right base and right middle lobe, few crackles in left base but no signs of distress Auscultation: crackles; Negative for rhonchi or wheezes Cardio regular rate, S1 normal heart sound, S2 normal heart sound, no murmurs, no rub, no gallops and no clicks Cardio Narrative: Irregular irregular rhythm GI normal to inspection, nondistended, normoactive bowel sounds, soft to palpation and non-tender GI Narrative: Scaphoid abdomen Extremity no clubbing, cyanosis or edema Extremity Narrative: Decreased lean muscle mass, pedal pulses are 2+, radial pulses are 2+ Neuro oriented x3, moves all extremities and no focal motor deficits Neuro Narrative: Masked facies, bradykinesia, slow deliberate speech with delayed response times but diction is clear Speech: Negative for speech normal Psych Psych Narrative: Affect is flat, eye contact is good and patient interacts appropriately Assessment & Plan Assessment/Plan (1) Weakness: (2) Aspiration pneumonia: (3) Dysphagia: (4) Acute heart failure with preserved ejection fraction (HFpEF): (5) SOB (shortness of breath): PLAN: Plan Dyspnea on exertion/shortness of breath -Suspect multifactorial related some heart failure as well as aspiration pneumonia -Has never been hypoxic but was intermittently placed on 2 L nasal cannula -Currently on room air with sats at 95 to 96% -Patient has been having swallowing difficulty -Modified barium swallow was performed and demonstrated decreased UES opening and duration of opening -GI consult was recommended and placed -Current recommended diet was general with mechanical and nectar thick liquids -Strep pneumo and Legionella antigens are negative -Sputum culture likely shows normal oral leonor based on Gram stain thus far however awaiting finalized culture result -Discontinue ceftriaxone azithromycin and transition to Unasyn--> day 1 of 7 -BNP was also markedly elevated at 755 -Echocardiogram done and showed EF of 65% but the inability to assess diastolic dysfunction and mild left atrial enlargement -Check TSH -Could also have high-output heart failure due to malnutrition -Continue Lasix 40 mg IV push twice daily and monitor renal function closely Dysphagia -Speech therapy following -GI consult per speech therapy recommendation -Modified diet as noted above Severe malnutrition -Likely plays into the all of the above -Supplements added -Dietitian is following -Continue mirtazapine Generalized weakness/debility secondary to worsening Parkinson's disease -Patient was seen by physical therapy and they are currently recommending outpatient therapy versus home health at discharge -Case management and social work are following -Will discuss further with patient and family as well as social work/case management tomorrow to start setting up discharge planning Parkinson's disease -Continue home levodopa carbidopa -Recommend ongoing outpatient neurology follow-up Essential hypertension/hyperlipidemia -Continue home amlodipine -Continue home lisinopril -Continue home metoprolol -continue home pravastatin Persistent atrial fibrillation -Continue home apixaban 5 mg p.o. twice daily -Continue home metoprolol 75 mg p.o. twice daily -Continue GERD -Continue home PPI History of DM-2 -Blood sugars are not markedly elevated at this time and I suspect with his weight loss that he may no longer be diabetic -Monitor clinically -Consider sliding scale if blood sugars are elevated Depression -Continue home Remeron DVT prophylaxis -Continue home Eliquis CODE STATUS -Reviewed with patient he would like to be full code Charges/Coding Visit Charges Inpatient E&M: 89547 Subs Hosp L3
[2023-09-16] MEDS: 0.9% Saline Lock 10 ML Syringe IV (17:21)
[2023-09-16] MEDS: Ampicillin/Sulbactam 3 GM in 0.9% Normal Saline (100mL MB+) 100 ML IV (17:21)
--- NOTE | 2023-09-16 17:35 | EX.PCM.CON.G ---
HPI Consult Data Date of Consult: 09/16/23 HPI Narrative Reason for Consultation: Dysphagia HPI Narrative: FARRAH HAYES, is a 82 M who presented via the ED on 09/15/2023 with a complaint of shortness of breath. He had been feeling short over the past 3 weeks, which worsened with exertion. He denied any cough, chest pain, palpitations, dizziness, nausea, vomiting or any other symptoms. Review of systems was otherwise negative. The shortness of breath was worsened by exertion. He denies any history of PE and has been cooperative with his Eliquis which he takes for A-fib. He says his most recent long distance travel was a drive to [place] and this was back in April 2023. He says he has lost about 90 pounds over the last year and he says this is due to his Parkinson's disease as he is not able to eat well and has had some dysphagia as well. Vitals in the ED were BP of 160/73, WI of 79, RR of 16 and temp of 98.3F. He was saturating at 98% on room air. CBC showed hb of 12.3, wbc of 7.8, platelets of 237.Chemistry showed sodium of 135, potassium of 4.1 nd Cr of 0.98. Initial troponin was negative and BNP was pending at time of my review. CXR showed a right basilar infiltrate and sputum was negative for covid, influenza A or B, or RSV. He is being admitted to be managed for hypoxia due to right lower lobe pneumonia He also has a history of Parkinson's disease which was diagnosed several years ago. He has been having progressive esophageal dysphagia associated with weight loss. Currently at this time he is only able to get down liquids. I was consulted to see him because he underwent a modified barium swallow was discovered to have oropharyngeal dysphagia and mild esophageal dysphagia. He is never undergone upper endoscopy with evaluation of his upper GI tract. [facility] Medical History (Updated 09/16/23 @ 15:[address] Shu Durbin, ) Atrial fibrillation Parkinson disease Hypertension Diabetes mellitus Home Medications ?Medication ?Instructions ?Recorded ?Last Taken ?Type amlodipine 2.5 mg tablet 2.5 mg PO DAILY BLOOD PRESSURE 09/15/23 09/15/23 History apixaban 5 mg tablet (Eliquis) 5 mg PO BID BLOOD THINNER 09/15/23 09/15/23 History carbidopa 25 mg-levodopa 100 mg 2 tab PO TID PARKINSONS 09/15/23 09/15/23 History tablet ipratropium bromide 42 mcg (0.06 2 spray intranasal TID RUNNY NOSE 09/15/23 09/14/23 History %) nasal spray lisinopril 10 mg tablet 10 mg PO DAILY BLOOD PRESSURE 09/15/23 09/15/23 History metoprolol tartrate 50 mg tablet 75 mg PO BID BLOOD PRESSURE 09/15/23 09/15/23 History mirtazapine 15 mg tablet 15 mg PO QHS DEPRESSION 09/15/23 09/15/23 History multivitamin (Daily Multi-Vitamin 1 tab PO DAILY HEALTH MAINTENANCE 09/15/23 09/15/23 History tablet) omeprazole 40 mg capsule,delayed 40 mg PO DAILY ACID REFLUX 09/15/23 09/15/23 History release pravastatin 10 mg tablet 10 mg PO DAILY CHOLESTEROL 09/15/23 09/15/23 History Allergy/AdvReac Type Severity Reaction Status Date / Time No Known Allergies Allergy Verified 09/15/23 14:25 Social History Smoking Status: Never smoker ROS Constitutional Constitutional: Reports fatigue, malaise and weakness; Denies anorexia, chills or fever(s) Eyes Eyes: Denies change in vision ENT HEENT: Denies dysphagia, headache(s), hearing loss, sore throat or throat swelling Cardiovascular Cardiovascular: Denies chest pain, edema, orthopnea, palpitations, paroxysmal nocturnal dyspnea or syncope Respiratory/Chest Respiratory/Chest: Reports shortness of breath with exertion; Denies cough, hemoptysis, shortness of breath at rest or wheezing Gastrointestinal Gastrointestinal: Denies constipation, diarrhea, nausea or vomiting Genitourinary Genitourinary: Denies dysuria Musculoskeletal Musculoskeletal: Denies back pain, limited range of motion, muscle weakness or neck pain Neurologic Neurologic: Denies confusion, dizziness, focal weakness, headache(s) or numbness Psychiatric Psychiatric: Denies anxiety or depression Hematologic/Lymphatic Hematologic/Lymphatic: Denies anemia Physical Exam Const alert, oriented x3 and no apparent distress; Negative for average body habitus, healthy appearing or well nourished HEENT head/scalp atraumatic and moist oral mucous membranes HEENT Narrative: Dentition is poor, Mallampati is 1, no thrush, significant temporal wasting Eyes PERRL, EOMs intact bilaterally and conjunctivae normal Eyes Narrative: No scleral icterus Neck no lymphadenopathy and supple Neck Narrative: Very prominent neck veins and neck anatomy due to decrease subcutaneous fat, no thyroid abnormality or nodules noted on exam, trachea is midline Resp normal respiratory effort, no retractions and no use of accessory muscles Resp Narrative: Diminished in right base and right middle lobe, few crackles in left base but no signs of distress Auscultation: crackles; Negative for rhonchi or wheezes Cardio regular rate, S1 normal heart sound, S2 normal heart sound, no murmurs, no rub, no gallops and no clicks Cardio Narrative: Irregular irregular rhythm GI normal to inspection, nondistended, normoactive bowel sounds, soft to palpation and non-tender GI Narrative: Scaphoid abdomen Extremity no clubbing, cyanosis or edema Extremity Narrative: Decreased lean muscle mass, pedal pulses are 2+, radial pulses are 2+ Neuro oriented x3, moves all extremities and no focal motor deficits Neuro Narrative: Masked facies, bradykinesia, slow deliberate speech with delayed response times but diction is clear Speech: Negative for speech normal Psych Psych Narrative: Affect is flat, eye contact is good and patient interacts appropriately Medical Records Data Medical Nutrition Assessment Dietitian: Malnutrition Criteria Met Start: 09/16/23 14:57 Freq: Status: Active Protocol: Document 09/16/23 14:57 GARRY (Rec: 09/16/23 14:57 [facility] [id number]) Nutrition Malnutrition Evidence of Malnutrition Exists Yes Malnutrition (severe): Chronic Evidenced By Suboptimal Energy Intake ( Severe),Weight Loss (Severe), Physical Changes (Severe) Clinical Problem Chronic Disease or Condition Related Malnutrition Etiology related to Parkinsons dz and issues w/ dysphagia making it difficulty to consume adequate energy Signs/Symptoms as evidenced by 33.1% unintended wt loss, having <50 % po intake of est nutritional needs, obvious fat loss/ muscle wasting throughout body and BMI 18.1 Status Active Problem Biting/Chewing Difficulty Etiology swallowing difficulty d/t issues w/ dysphagia Signs/Symptoms as evidenced by need for mech altered diet w/ thickened liquids Status Active Problem Recommendation Dietitian Recommendations/Changes Will change diet to liberal Regular - consistency per [employer]; Rec liberalize fluid restriction as medically able Continue ensure plus high protein tid w/ medpass Add 120 ml ensure clear tid w/ meals for increased nutrition if consumed. Lab / Micro Data 09/16/23 06:36 09/16/23 06:36 Labs: Laboratory Results - last 24 hr 09/15/23 15:00: B-Natriuretic Peptide 788.5 H 09/16/23 06:36: WBC 6.8, RBC 3.75 L, Hgb 11.1 L, Hct 34.4 L, MCV 91.7, MCH 29.6, MCHC 32.3, RDW Std Deviation 49.6 H, RDW Coeff of Seth 14.9 H, Plt Count 230, MPV 9.2, Immature Gran % (Auto) 0.300, Neut % (Auto) 55.5, Lymph % (Auto) 32.4, [place] % (Auto) 9.4, Eos % (Auto) 1.8, Baso % (Auto) 0.6, Absolute Neuts (auto) 3.8, Absolute Lymphs (auto) 2.20, Nucleated RBC % 0, Sodium 138, Potassium 3.6, Chloride 102, Carbon Dioxide 32.0, Anion Gap 4 L, BUN 16, Creatinine 1.03, Estim Creat Clear Calc 47.54, Est GFR (MDRD) Af Amer 89, Est GFR (MDRD) Non-Af 73, BUN/Creatinine Ratio 15.5, Glucose 95, Calcium 9.3 Micro: Microbiology 09/15/23 22:40 Sputum, Expectorated/Coughed Gram Stain - Final 09/15/23 22:40 Urine, Clean Catch Legionella Antigen - Final 09/15/23 22:40 Urine, Clean Catch Streptococcus pneumoniae Antigen (M - Final 09/15/23 15:40 Mucosa - Nasopharyngeal SARS-CoV-2, Influenza & RSV (PCR) - Final Imaging Radiology Impression Echocardiogram 09/15/23 19:51 Interpretation Summary The estimated ejection fraction is 65 %. Unable to assess diastolic dysfunction. The left atrium is mildly enlarged. Ordering Physician: Sheela Quinn Referring Physician: JUANY PACHECO Performed By: Abena Deleon RCS Chest CTA 09/16/23 08:11 IMPRESSION: CTA chest examination, without a demonstrated pulmonary embolism or arterial dissection. Right middle lobe infiltrate. Right pleural effusion. Electronically Signed: Edgar Souza MD at 9:09 EDT Reading Location ID and State: [address] [place] [address] , Service support , Assessment & Plan Assessment/Plan (1) Hypoxia: (2) Community acquired pneumonia: (3) Weakness: PLAN: Plan 82-year-old with Parkinson's disease and discovered to have hypoxia due to community acquired pneumonia and aspiration pneumonia likely secondary to oropharyngeal dysphagia and esophageal dysphagia. He will undergo an upper endoscopy to evaluate his upper GI tract. He was explained alternatives, risk, benefits including not withstanding bleeding, infection, sepsis, perforation, need for emergent urgent . He will have an ASA of 3. Also told he may need to do Botox therapy to his esophagus also. Charges/Coding Visit Charges Inpatient E&M: 04724 Init Hosp L3
[2023-09-16 20:20] VITALS: BP 130/84; PULSE 63; RESP 16; TEMP 36.6; O2SAT 99
[2023-09-16 21:11] VITALS: PULSE 63
[2023-09-16] MEDS: Pravastatin 20 MG Tablet 10 MG PO (21:11)
[2023-09-16] MEDS: Mirtazapine 15 MG Tablet PO (21:11)
[2023-09-17] VITALS (10 sets, daily range): BP systolic 110–147; BP diastolic 65–95; PULSE 64–111; RESP 13–18; TEMP 35.9–36.6; O2SAT 91–100; BMI 18.1
[2023-09-17] MEDS: Ampicillin/Sulbactam 3 GM in 0.9% Normal Saline (100mL MB+) 100 ML IV ×3 (00:07→10:59)
[2023-09-17] MEDS: Ipratropium Bromide 0.06% NASAL SPRAY 2 SPRAY NASAL ×2 (05:54→14:53)
[2023-09-17 07:38] LABS: Absolute Lymphocyte Count 1.85 X10^3/uL (0.83-4.51); Absolute Neutrophil Count 4.4 X10^3/uL (2.0-7.7); Basophil# 0.04 X10^3/uL; Basophil% 0.6 % (0-1); Eosinophil# 0.08 X10^3/uL; Eosinophils% 1.2 % (0-5); Hematocrit 38.4 % (40-54); Hemoglobin 12.2 g/dL (13.0-16.5); Lymphocyte # 1.85 X10^3/ul (0.83-4.51); Lymphocyte % 26.9 % (19-41); Mean Corp Hgb Conc 31.8 g/dL (32-36); Mean Corpuscular Hgb 28.9 pg (27.0-32.0); Mean Platelet Vol. 9.2 fl (6.2-12.0); Monocyte# 0.47 X10^3/uL; Monocyte% 6.8 % (0-10); NRBC Flagged by Analyzer 0 % (0-5); Neutrophil # 4.42 X10^3/uL (2.7-7.7); Neutrophil % 64.1 % (47-70); Platelet Count 262 K/mm3 (150-450); RBC Distribution Width CV 14.9 % (11.6-14.6); RBC Distribution Width SD 49.6 fl (35.1-43.9); Red Blood Count 4.22 M/mm3 (4.6-6.2); White Blood Count 6.9 K/mm3 (4.4-11.0)
[2023-09-17 08:06] LABS: Hemoglobin A1c 5.4 % (3.8-5.6)
[2023-09-17 08:11] LABS: ALB/GLOB Ratio 0.7 RATIO (0.9-2.4); AST(SGOT) 20 U/L (15-37); Alanine Aminotransfer ALT/SGPT 12 U/L (16-61); Albumin, Serum 3.2 g/dL (3.2-5.0); Alkaline Phosphatase 144 U/L (45-117); Anion Gap 6 (5-15); BUN 19 mg/dL (7-18); BUN/Creat Ratio 19.1 RATIO (10-20); Calcium,Total 9.3 mg/dL (8.5-10.1); Chloride 100 mmol/L (98-107); EST Glomerular Filtration Rate 76 mL/min (>60); Est Glom Filt Rate - Afr Amer 92 mL/min (>60); Estimated Creatinine Clearance 48.96 ml/min; Globulin 4.7 g/dL (2.2-4.2); Glucose 106 mg/dL (74-106); Phosphorus 4.3 mg/dL (2.5-4.9); Potassium 3.6 mmol/L (3.5-5.1); Protein, Total 7.9 g/dL (6.4-8.2); Sodium Level 137 mmol/L (136-145); Thyroid Stim Hormone (TSH) 2.12 uIU/mL (0.358-3.74)
[2023-09-17] MEDS: Botulinum Toxin A 100 Units Vial IJ (09:46)
[2023-09-17] MEDS: 0.9% Normal Saline (Pres. free 10 ML Vial (09:46)
--- NOTE | 2023-09-17 09:57 | OP.CCLET_ITS ---
09/17/2023 Celso Masterson [address] [place] [address] Re : [facility] This procedure was performed on Sunday, September 17, 2023. 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 - Benign-appearing esophageal stenosis. Dilated. Injected with botulinum toxin. - Small hiatal hernia. - No gross lesions in the first portion of the duodenum. - No specimens collected. Recommendations : - [facility]. - Full liquid diet today. - Continue present medications. My findings are described in the full procedure note, which is enclosed. If I can be of further assistance, please feel free to contact me at . Sincerely, Christiano Cobb, 09/17/2023 9:56:42 AM This report has been signed electronically.
--- NOTE | 2023-09-17 09:57 | OP.EGD_ITS ---
Patient Name: Manuel Esquivel Procedure Date: 09/17/2023 9:09 AM Date of : 1940 Age: 82 Procedure: Upper GI endoscopy Indications: Dysphagia Providers: Christiano Cobb DO Medicines: Monitored Anesthesia Care Patient Profile: This is an 82 year old male. Refer to note in patient chart for documentation of history and physical. Patient has symptoms of dysphagia with solids. Complications: No immediate complications. Procedure: Pre-Anesthesia Assessment: - Prior to the procedure, a History and Physical was performed, and patient medications and allergies were reviewed. The risks and benefits of the procedure and the sedation options and risks were discussed with the patient. All questions were answered and informed consent was obtained. Patient identification and proposed procedure were verified by the physician. Mental Status Examination: alert and oriented. Airway Examination: normal oropharyngeal airway and neck mobility. Respiratory Examination: clear to auscultation. CV Examination: normal. Prophylactic Antibiotics: The patient does not require prophylactic antibiotics. Prior Anticoagulants: The patient has taken no anticoagulant or antiplatelet agents. After reviewing the risks and benefits, the patient was deemed in satisfactory condition to undergo the procedure. The anesthesia plan was to use monitored anesthesia care (MAC). Immediately prior to administration of medications, the patient was re-assessed for adequacy to receive sedatives. The heart rate, respiratory rate, oxygen saturations, blood pressure, adequacy of pulmonary ventilation, and response to care were monitored throughout the procedure. The physical status of the patient was re-assessed after the procedure. After obtaining informed consent, the endoscope was passed under direct vision. Throughout the procedure, the patient's blood pressure, pulse, and oxygen saturations were monitored continuously. The Endoscope was introduced through the mouth, and advanced to the second part of duodenum. The upper GI endoscopy was accomplished without difficulty. The patient tolerated the procedure well. Scope In: 9:37:33 AM Scope Out: 9:50:59 AM Total Procedure Duration Time 0 hours 13 minutes 26 seconds Findings: A non-bleeding diverticulum with a small opening and no stigmata of recent bleeding was found at the cricopharyngeus. One benign-appearing, intrinsic severe (stenosis; an endoscope cannot pass) stenosis was found 18 to 20 cm from the incisors. This stenosis measured 3 cm (in length). The stenosis was traversed after dilation. A guidewire was placed and the scope was withdrawn. Dilation was performed with a Savary dilator with no resistance at 54 Fr. The dilation site was examined and showed moderate mucosal disruption. Area was successfully injected with 100 units botulinum toxin. A small hiatal hernia was present. No gross lesions were noted in the first portion of the duodenum. 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 - Benign-appearing esophageal stenosis. Dilated. Injected with botulinum toxin. - Small hiatal hernia. - No gross lesions in the first portion of the duodenum. - No specimens collected. Recommendation: - [facility]. - Full liquid diet today. - Continue present medications. Procedure Code(s): --- Professional --- 02282, Esophagogastroduodenoscopy, flexible, transoral; with insertion of guide wire followed by passage of dilator(s) through esophagus over guide wire 52958, 59,51, Esophagogastroduodenoscopy, flexible, transoral; with directed submucosal injection(s), any substance CPT copyright 2021 [employer]. All rights reserved. The codes documented in this report are preliminary and upon face and fill packer review may be revised to meet current compliance requirements. Christiano Cobb DO 09/17/2023 9:56:42 AM This report has been signed electronically. Number of Addenda: 0 Note Initiated On: 09/17/2023 9:09 AM
[2023-09-17] MEDS: Metoprolol Tartrate 50 MG Tablet 75 MG PO (10:47)
[2023-09-17] MEDS: Multivitamins,Therapeutic Tablet 1 TABLET PO (10:47)
[2023-09-17] MEDS: 0.9% Saline Lock 10 ML Syringe IV (10:47)
[2023-09-17] MEDS: APIXABAN 5 MG TABLET PO (10:47)
[2023-09-17] MEDS: Pantoprazole Sodium 40 MG Tablet PO (10:48)
[2023-09-17] MEDS: Carbidopa/Levodopa 25/100 Tablet PO (10:48)
[2023-09-17] MEDS: amLODIPine 2.5 MG Tablet PO (10:48)
[2023-09-17] MEDS: Lisinopril 10 MG Tablet PO (10:48)
[2023-09-17] MEDS: Furosemide 40 MG/4 ML Vial IV (10:49)
[2023-09-17] MEDS: oxyCODONE 5 MG Tablet PO (11:25)
--- NOTE | 2023-09-17 14:02 | DS.PCM_ITS ---
Providers Date of Admission: 09/15/23 Date of Discharge: 09/17/23 Primary Care Physician: Dr. Celso Masterson, DO Consultations 09/16/23 14:43 Consult: Gastroenterology Routine Consulting Provider: [facility] Reason for Consult: abn MBS-Needs EGD EMERGENT Consult: No MD Notified: Yes Date Notified: 09/16/23 Time Notified: 14:44 Method of Notification: Text Reason For Visit: HYPOXIA, COMMUNITY ACQUIRED PNEUMONIA Diagnosis Discharge Diagnosis (1) Hypoxia: Status: Deleted Code(s): R09.02 - Hypoxemia (2) Community acquired pneumonia: Status: Ruled-out Code(s): J18.9 - Pneumonia, unspecified organism (3) Weakness: Status: Acute Code(s): R53.1 - Weakness Medications at Discharge Home Medications amlodipine 2.5 mg tablet 2.5 mg PO DAILY BLOOD PRESSURE 09/15/23 apixaban 5 mg tablet (Eliquis) 5 mg PO BID BLOOD THINNER 09/15/23 carbidopa 25 mg-levodopa 100 mg tablet 2 tab PO TID PARKINSONS 09/15/23 ipratropium bromide 42 mcg (0.06 %) nasal spray 2 spray intranasal TID RUNNY NOSE 09/15/23 lisinopril 10 mg tablet 10 mg PO DAILY BLOOD PRESSURE 09/15/23 metoprolol tartrate 50 mg tablet 75 mg PO BID BLOOD PRESSURE 09/15/23 mirtazapine 15 mg tablet 15 mg PO QHS DEPRESSION 09/15/23 multivitamin (Daily Multi-Vitamin tablet) 1 tab PO DAILY HEALTH MAINTENANCE 09/15/23 omeprazole 40 mg capsule,delayed release 40 mg PO DAILY ACID REFLUX 09/15/23 pravastatin 10 mg tablet 10 mg PO DAILY CHOLESTEROL 09/15/23 amoxicillin 875 mg-potassium clavulanate 125 mg tablet 1 tab PO BID #14 tabs 09/17/23 furosemide 20 mg tablet (Lasix) 20 mg PO QODAY #30 tabs 09/17/23 Hospital Course Operations None Procedures 2-D Echocardiogram, EGD, EKG and Modified Barium Swallow Summary of Care Provided Minutes Spent on Discharge: 45 Hospital Course: Mr. Esquivel is an 82-year-old white male with a history of Parkinson disease who presented to emergency department at [facility] for shortness of breath on 09/16/2023. On presentation he reported that he had been feeling more short of breath for about 3 weeks which was worse with exertion. He denied any cough, chest pain, palpitations, nausea, vomiting or any other significant symptoms associated with the shortness of breath. He had denied any history of pulmonary embolism and takes Eliquis at baseline for A-fib and has been compliant with this. He indicated he lost about 90 pounds over the last year and feels it is related to his Parkinson disease. He states he has difficulty eating and at times he will cough after drinking. He also complained that he feels like things intermittently will get stuck in his upper throat while he is swallowing. Vital signs on presentation demonstrated temperature of 98.3, blood pressure was 160/73, heart rate was 79, respiratory rate 16 oxygen saturations were 98% on room air. His CBC showed a no leukocytosis but mild L shift. He had a mild anemia. His BMP was unremarkable. Troponin was 11. BNP was markedly elevated at 788.5. Chest x-ray had a right lower lobe infiltrate. We obtained a CTA of his chest as we did want to rule out a mass that demonstrated a right middle lobe infiltrate as well as a small right pleural effusion. No PE was identified. EKG showed atrial fibrillation with an incomplete right bundle branch block and a left anterior fascicular block with no ST-T wave changes concerning for acute ischemia. COVID/flu/RSV was unremarkable and strep pneumo and Legionella antigens were obtained and unremarkable. Sputum culture was able to be obtained and Gram stain is currently showing gram-positive rods and gram- positive cocci with no white blood cells. He was initially admitted to the floor and placed on IV Lasix twice daily with his elevated BNP as well as antibiotics with ceftriaxone and azithromycin. With a negative Legionella antigen and concern for aspiration he has been transition to Unasyn and speech therapy evaluated the patient. Speech therapy performed a modified barium swallow at which time there was concern for EUS so GI was consulted. They found moderate to severe oropharyngeal dysphagia likely related to his EUS plus worsening dysphagia related to his Parkinson's disease. GI was consulted and an EGD was performed on 09/17/2023 at which time he was found to have a nonbleeding diverticulum with a small opening and no stigmata of bleeding around the cricopharyngeus and 1 benign appearing intrinsic severe stenosis (endoscope was not able to pass at around 18 to 20 cm from the incisors that was measured to be 3 cm in length. The stenosis was traversed after dilation and a guidewire was placed and the scope was withdrawn moderate dilation was performed given his age and had a moderate mucosal disruption in the area was successfully injected with 100 units of botulism. The patient was also noted to have a small hiatal hernia. I discussed the case with Dr. Cobb and he felt he was safe for discharge however he did recommend a full liquid diet today to advance to a soft diet tomorrow as long he is tolerating a full liquid diet and keep this diet until he can be further evaluated with speech therapy and by himself. It is likely that this is contributing to his significant weight loss and was also recommended that he add Ensure 4 times daily to supplement his diet at home. Speech therapy had multiple recommendations for aspiration prevention which were provided for him at discharge. Sputum culture was consistent with normal respiratory leonor and aspiration pneumonia. He was maintained on Unasyn as noted above and transition to Augmentin to complete a 7-day course at the time of discharge. He asked for pills that he could crush in applesauce which were provided to him and sent to his local pharmacy. Ambulatory pulse ox was done prior to discharge and his sats were 95% on room air at rest and 91% with exertion. I did watch the patient walk at about 150 to 200 feet utilizing a wheeled walker with standby assist. Patient does use a rollator at home and states he typically only walks about 50 feet. He indicated his breathing was much better however not quite to baseline. Given his BNP elevation we did obtain an echocardiogram which showed an EF of 65%, indeterminate diastolic dysfunction and mildly enlarged left atrium. I am wondering whether there could be a nutritional component to his heart failure as well and we did place him on Lasix just 20 mg every other day and asked him to obtain a basic metabolic profile from his primary care physician in the next week to reassess his kidney function and electrolytes. He was sent with a prescription for this as well. No other medication changes were made and again prescriptions for Augmentin and Lasix were sent to local pharmacy. We had extensive conversation based on physical, occupational, and speech therapy recommendations with regard to home health however the patient was adamant that he did not want home health and that his son would be home with him and could help him at home however he was amenable to going to [facility] for ongoing physical, occupational, and speech therapy. I did inform him they do have a Parkinson's program that I thought he would benefit from and he was very interested in this. Their number was given to him and have asked him to make a call on Tuesday to set up an outpatient appointment evaluation. He was discharged home in stable condition on 09/17/2023. I have asked him to follow-up with his primary care physician within the next week and call on Tuesday to set up an appointment to see Dr. Cobb in the next 3 to 6 weeks. Discharge diagnoses: Dyspnea on exertion-improved Shortness of breath-improved Aspiration pneumonia Dysphagia Esophageal stricture Esophageal diverticulum Severe malnutrition Generalized weakness and debility secondary to worsening Parkinson's disease and malnutrition Parkinson's disease Essential hypertension Hyperlipidemia Persistent atrial fibrillation GERD DM-2 Depression Physical Exam Const alert, oriented x3 and no apparent distress; Negative for average body habitus, healthy appearing or well nourished Constitutional Narrative: Cachectic, elderly, white male, walking with physical therapy utilizing a wheeled walker, currently appears comfortable and chronically ill but not acutely ill, not toxic General Appearance: cooperative, comfortable, well kempt and well developed Orientation / Consciousness: awake, oriented to person, oriented to place and oriented to time HEENT normocephalic, head/scalp atraumatic, moist oral mucous membranes and oropharynx normal HEENT Narrative: Mild hearing loss, dentition is fair for age, Mallampati is 1, no thrush Eyes PERRL, EOMs intact bilaterally and conjunctivae normal Eyes Narrative: No scleral icterus Neck no lymphadenopathy and supple Neck Narrative: Very prominent neck veins and neck anatomy due to decrease subcutaneous fat, no thyroid abnormality or nodules noted on exam, trachea is midline Resp normal respiratory effort, no retractions, no use of accessory muscles and clear to auscultation bilaterally Auscultation: Negative for crackles, rhonchi or wheezes Cardio regular rate, S1 normal heart sound, S2 normal heart sound, no murmurs, no rub, no gallops and no clicks Cardio Narrative: Irregular irregular rhythm GI normal to inspection, nondistended, normoactive bowel sounds, soft to palpation and non-tender GI Narrative: Scaphoid abdomen Extremity no clubbing, cyanosis or edema Extremity Narrative: Decreased lean muscle mass, pedal pulses are 2+, radial pulses are 2+ Skin No no rashes or lesions noted, no wounds, skin turgor normal and no jaundice Skin Narrative: Few scattered ecchymosis Neuro oriented x3, moves all extremities and no focal motor deficits Neuro Narrative: Masked facies, bradykinesia, slow deliberate speech with delayed response times but diction is clear, gait with decreased stride length and somewhat festinating Speech: Negative for speech normal Motor Exam: general weakness Psych thought process normal and cooperative Psych Narrative: Affect is flat, eye contact is good and patient interacts appropriately Appearance: appropriate Medical Records Data Medical Nutrition Assessment Dietitian: Malnutrition Criteria Met Start: 09/16/23 14:57 Freq: Status: Active Protocol: Document 09/16/23 14:57 GARRY (Rec: 09/16/23 14:57 [facility] [id number]) Nutrition Malnutrition Evidence of Malnutrition Exists Yes Malnutrition (severe): Chronic Evidenced By Suboptimal Energy Intake ( Severe),Weight Loss (Severe), Physical Changes (Severe) Clinical Problem Chronic Disease or Condition Related Malnutrition Etiology related to Parkinsons dz and issues w/ dysphagia making it difficulty to consume adequate energy Signs/Symptoms as evidenced by 33.1% unintended wt loss, having <50 % po intake of est nutritional needs, obvious fat loss/ muscle wasting throughout body and BMI 18.1 Status Active Problem Biting/Chewing Difficulty Etiology swallowing difficulty d/t issues w/ dysphagia Signs/Symptoms as evidenced by need for mech altered diet w/ thickened liquids Status Active Problem Recommendation Dietitian Recommendations/Changes Will change diet to liberal Regular - consistency per 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 Weight / BMI Weight Weight: 60.781 kg Body Mass Index (BMI) 18.1 ABG / Lab / Microbiology Data 09/17/23 06:56 09/17/23 06:56 Laboratory: Laboratory Results - last 24 hr 09/16/23 06:36: Hemoglobin A1c 5.4 09/17/23 06:56: WBC 6.9, RBC 4.22 L, Hgb 12.2 L, Hct 38.4 L, MCV 91.0, MCH 28.9, MCHC 31.8 L, RDW Std Deviation 49.6 H, RDW Coeff of Seth 14.9 H, Plt Count 262, MPV 9.2, Immature Gran % (Auto) 0.400, Neut % (Auto) 64.1, Lymph % (Auto) 26.9, Barber % (Auto) 6.8, Eos % (Auto) 1.2, Baso % (Auto) 0.6, Absolute Neuts (auto) 4.4, Absolute Lymphs (auto) 1.85, Nucleated RBC % 0, Sodium 137, Potassium 3.6, Chloride 100, Carbon Dioxide 31.0, Anion Gap 6, BUN 19 H, Creatinine 1.00, Estim Creat Clear Calc 48.96, Est GFR (MDRD) Af Amer 92, Est GFR (MDRD) Non-Af 76, BUN/Creatinine Ratio 19.1, Glucose 106, Calcium 9.3, Phosphorus 4.3, Magnesium 2.0, Total Bilirubin 0.80, AST 20, ALT 12 L, Alkaline Phosphatase 144 H, Total Protein 7.9, Albumin 3.2, Globulin 4.7 H, Albumin/Globulin Ratio 0.7 L, TSH 2.12 Microbiology: Microbiology 09/15/23 22:40 Sputum, Expectorated/Coughed Gram Stain - Final 09/15/23 22:40 Sputum, Expectorated/Coughed Respiratory Culture - Preliminary Appears to be normal respiratory leonor. Further studies to follow. 09/15/23 22:40 Urine, Clean Catch Legionella Antigen - Final 09/15/23 22:40 Urine, Clean Catch Streptococcus pneumoniae Antigen (M - Final 09/15/23 15:40 Mucosa - Nasopharyngeal SARS-CoV-2, Influenza & RSV (PCR) - Final D/C Instructions Discharge Diet: Soft diet (Liquid diet for the rest of today and advance to soft diet tomorrow) and - (Take medications crushed in applesauce) Discharge Activity: Return to Normal Activity Meaningful Use Info Meaningful Use Meaningful Use Diagnoses (Choose all that apply): None applicable Ischemic Stroke Statin Dosing Therapy Reference: STATIN DOSE THERAPY REFERENCE: * Patients > 75 years receive moderate or high dose statin therapy. * Patients 75 years or YOUNGER should receive HIGH intensity statin dose unless contraindicated. You will be required to document reason for non-treatment if statin daily dose does not meet guidelines. HIGH DOSE STATIN THERAPY DAILY Atorvastatin > than or = to 40 mg Rosuvastatin > than or = to 20 mg Amlodipine + Atorvastatin > than or = to 2.5/40 mg Ezetimibe + Simvastatin 10/80 mg Simvastatin 80mg Discharge Plan Admission Admit Date/Time: 09/15/23 17:14 Primary Reason for Your Visit: Shortness of breath with exertion Attending Provider: Shu Durbin Primary Care Provider: Celso Masterson Consulting Providers: Sheela Quinn Instructions Additional Instructions / Restrictions: 1. Please call [facility] on Tuesday and schedule an appointment for physical, occupational, and speech therapy for your Parkinson's disease and swallowing difficulties 2. Please continue a full liquid diet today and transition to a soft diet until advanced further by speech therapy 3. Please call Dr. Cobb's office as instructed below and schedule an appointment to be seen in his office in the next 3 to 6 weeks for hospital follow-up 4. Please continue following your safe swallowing techniques to include A-small bites and sips B-alternating solids and liquids C-sit upright during and for 30 to 60 minutes after meals D-chin tuck strategy while swallowing to protect your airway *These are important in minimizing repeat aspiration events* 5. Please crush antibiotics as discussed and complete entire course of treatment 6. Please call your primary care physician and ask that a basic metabolic profile be done in the next 7 to 10 days to follow-up your kidney function and electrolytes with the addition of low-dose Lasix to be taken every other day 7. Would highly recommend that you start taking Ensure 4 times daily between meals and before bed to help with your nutritional status Discharge Orders/Prescriptions Prescriptions: New furosemide [Lasix] 20 mg tablet 20 mg PO QODAY Qty: 30 0RF amoxicillin-pot clavulanate 875-125 mg tablet 1 tab PO BID Qty: 14 0RF Rx Instructions: crush and place in applesauce using swallowing strategies Continued amlodipine 2.5 mg tablet 2.5 mg PO DAILY omeprazole 40 mg capsule,delayed release(DR/EC) 40 mg PO DAILY pravastatin 10 mg tablet 10 mg PO DAILY lisinopril 10 mg tablet 10 mg PO DAILY metoprolol tartrate 50 mg tablet 75 mg PO BID mirtazapine 15 mg tablet 15 mg PO QHS ipratropium bromide 42 mcg (0.06 %) spray,non-aerosol 2 spray INTRANASAL TID carbidopa-levodopa 25-100 mg tablet 2 tab PO TID Eliquis 5 mg tablet 5 mg PO BID multivitamin [Daily Multi-Vitamin] Tablet 1 tab PO DAILY Referrals / Follow Up: Celso Masterson DO [Primary Care Provider] - Within 1 Week FriendChristiano DO [Med Staff - Active Staff] - See Referral Note (Please call the office on Tuesday and set up an outpatient appointment to be seen in the next 3 to 6 weeks) Disposition Disposition (needs filled in before D/C Order can be placed): Home, Self Care Charges/Coding Visit Charges Inpatient E&M: 84158 Disch Hosp >30min
--- NOTE | 2023-09-17 14:37 | CASEMGMT ---
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 Pt aware and agreeable. Home oxygen assessment completed and pt does not need home going oxygen. Vijaya Cervantes MSN, RN, CCM
[2023-09-17] MEDS: Glycerin/Hypromellose/PEG400 15 ml Bottle 1 DRP EACH EYE (14:53)
== END 2023-09-17 16:01 | disposition home or self-care (01) | DRG 177 ==
LOC: ED 17:12 → MS3 17:42
PROVIDERS: Anesthesiology; Internal Medicine Gastroenterology; Nurse Practitioner; Admitting Provider Student in an Organized Health Care Education/Training Program; Emergency Provider Emergency Medicine; PCP Student in an Organized Health Care Education/Training Program; Visit Provider Internal Medicine
PROC: 0DJ08ZZ Inspection of Upper Intestinal Tract, Via Natural or Artificial Opening Endoscopic (ICD-10-PCS; CPT 43235; principal; 2023-09-17 09:00)
DX: J69.0 Pneumonitis due to inhalation of food and vomit (principal); E43 Unspecified severe protein-calorie malnutrition; I50.31 Acute diastolic (congestive) heart failure; I48.19 Other persistent atrial fibrillation; Z68.1 Body mass index [BMI] 19.9 or less, adult; K22.2 Esophageal obstruction; G20.A1 Parkinson's disease without dyskinesia, without mention of fluctuations; I11.0 Hypertensive heart disease with heart failure; E11.9 Type 2 diabetes mellitus without complications; F32.A Depression, unspecified; E78.5 Hyperlipidemia, unspecified; K22.5 Diverticulum of esophagus, acquired; K21.9 Gastro-esophageal reflux disease without esophagitis; Z79.01 Long term (current) use of anticoagulants; Z79.899 Other long term (current) drug therapy
CPT/HCPCS: 36415; 71046; 71275; 74230; 80048; 80053; 83036; 83735; 83880; 84100; 84443; 84484; 85025; 87070; 87205; 87449; 87631; 92526; 92610; 92611; 93005; 93306; 97162; 97166; 97530; 97802; 99284; A4216; C1769; J0295; J0585; J1940; J2405; J3490

== ENCOUNTER 2023-09-29 10:47 | Inpatient (IN) | payer MEDICARE, SELFPAY ==
[2023-09-29] VITALS (10 sets, daily range): BP systolic 108–140; BP diastolic 78–95; PULSE 76–83; RESP 16–29; TEMP 35.7–36.8; O2SAT 96–100; BMI 19.5; BMI 17.6
--- NOTE | 2023-09-29 11:22 | EX.ED.DYSGE1 ---
HPI <LLUVIA Artis - Last Filed: 09/29/23 13:20> History of Present Illness Chief Complaint: Shortness of Breath Narrative Narrative: Patient is an 82-year-old male with history of Parkinson disease, atrial fibrillation on Eliquis, who recently had his esophagus stretched by Dr. Cobb presenting to the emergency department with multiple complaints. Patient has been having shortness of breath over multiple weeks, however over the last 2 weeks he has been male noticing that it is getting much worse. Patient was at his doctor's office today, could not finish because he was so short of breath and they referred him here. Patient also states that he is extremely weak, they is lost 9 pounds and is unable to eat and drink because he is so weak. Patient is cachectic appearing. [facility] <LLUVIA Artis - Last Filed: 09/29/23 13:20> [facility] Medical History (Updated 09/29/23 @ 13:[address] Ever Lucero MD) Chronic kidney disease Failure to thrive in adult Hyperlipemia Esophageal reflux Atrial fibrillation Parkinson disease Hypertension Diabetes mellitus Home Medications ?Medication ?Instructions ?Recorded ?Last Taken ?Type amlodipine 2.5 mg tablet 2.5 mg PO DAILY BLOOD PRESSURE 09/15/23 09/15/23 History apixaban 5 mg tablet (Eliquis) 5 mg PO BID BLOOD THINNER 09/15/23 09/15/23 History carbidopa 25 mg-levodopa 100 mg 2 tab PO TID PARKINSONS 09/15/23 09/15/23 History tablet ipratropium bromide 42 mcg (0.06 2 spray intranasal TID RUNNY NOSE 09/15/23 09/14/23 History %) nasal spray lisinopril 10 mg tablet 10 mg PO DAILY BLOOD PRESSURE 09/15/23 09/15/23 History metoprolol tartrate 50 mg tablet 75 mg PO BID BLOOD PRESSURE 09/15/23 09/15/23 History mirtazapine 15 mg tablet 15 mg PO QHS DEPRESSION 09/15/23 09/15/23 History multivitamin (Daily Multi-Vitamin 1 tab PO DAILY HEALTH MAINTENANCE 09/15/23 09/15/23 History tablet) omeprazole 40 mg capsule,delayed 40 mg PO DAILY ACID REFLUX 09/15/23 09/15/23 History release pravastatin 10 mg tablet 10 mg PO DAILY CHOLESTEROL 09/15/23 09/15/23 History amoxicillin 875 mg-potassium 1 tab PO BID #14 tabs 09/17/23 Unknown Rx clavulanate 125 mg tablet furosemide 20 mg tablet (Lasix) 20 mg PO QODAY #30 tabs 09/17/23 Unknown Rx Allergy/AdvReac Type Severity Reaction Status Date / Time No Known Allergies Allergy Verified 09/29/23 10:48 Social History Smoking Status: Never smoker ROS <LLUVIA Artis - Last Filed: 09/29/23 13:20> ROS ED ROS Narrative Constitutional: Negative for fever, chills. Positive for weight loss, weakness Eyes: Negative for vision loss, vision change, double vision ENT: Negative for any sore throat, ear pain, congestion Cardiovascular: Negative for any chest pain, tightness, palpitations Respiratory: Negative for any cough, sputum production, hemoptysis. Positive for dyspnea, dyspnea on exertion, orthopnea Gastrointestinal: Negative for any abdominal pain, nausea, vomiting, diarrhea, constipation, blood in stool, blood in vomit : Negative for any urinary frequency, dysuria, retention, blood in urine Muscle skeletal: Negative for any neck pain, back pain Neurological: Negative for any headache, syncope, dizziness Skin: Negative for any rashes, itching, abrasions, lacerations Psychiatric: Negative for any depression, anxiety, stress, suicidal ideation, homicidal ideation Hematologic: Negative for any excessive bruising, easy bleeding EXAM <LLUVIA Artis - Last Filed: 09/29/23 13:20> Physical Exam Narrative Exam Narrative: Vital signs reviewed. Patient is alert and orient x 4, patient is cachectic appearing. Patient is tachypneic however patient's vital signs are stable. HEET: Head normocephalic atraumatic, TMs clear bilaterally. Posterior pharynx is clear, dry mucous membranes. Nares clear bilaterally. Neck: Supple with no lymphadenopathy or tenderness. No signs of meningismus. Cardiac: Regular rate and rhythm no murmurs gallops or rubs, equal peripheral pulses bilaterally. Respiratory: Lungs clear to auscultation bilaterally, diminished bilateral bases, patient would not take a deep breath. No chest tenderness. Abdomen: Soft, nontender, nondistended. No abdominal bruit or pulsatile masses. No hepatosplenomegaly Extremities: No peripheral edema, no signs of gross trauma or deformity. Active full range of motion of all extremities. Neuro: Cranial nerves II through XII intact, no focal neurological deficits. Skin: Clean dry and intact with no rash, purpura, petechiae, vesicles or pustules. Backs/flank: No CVA tenderness, no midline spinal tenderness, no deformity. Psych: Normal mood and affect. No SI, HI or acute psychosis. Const Vital Signs: 09/29/23 10:48 09/29/23 10:53 09/29/23 10:58 Temperature 96.3 F L 96.3 F L Temperature Source Temporal Temporal Pulse Rate 76 76 Respiratory Rate 29 H 29 H Respiratory Effort Short of Breath Respiratory Depth Shallow Respiratory Pattern Tachypnea Blood Pressure 130/93 H 130/93 H Blood Pressure Mean 105 105 Pulse Ox 100 100 Oxygen Delivery Method Room Air Room Air Room Air 09/29/23 11:23 Temperature Temperature Source Pulse Rate Respiratory Rate Respiratory Effort Respiratory Depth Respiratory Pattern Blood Pressure Blood Pressure Mean Pulse Ox Oxygen Delivery Method Room Air Positive cachectic General Appearance ED: cachectic Nutritional Appearance: cachectic <Dr. Laron Nick DO - Last Filed: 09/29/23 14:13> Physical Exam Const Vital Signs: 09/29/23 10:48 09/29/23 10:53 09/29/23 10:58 Temperature 96.3 F L 96.3 F L Temperature Source Temporal Temporal Pulse Rate 76 76 Respiratory Rate 29 H 29 H Respiratory Effort Short of Breath Respiratory Depth Shallow Respiratory Pattern Tachypnea Blood Pressure 130/93 H 130/93 H Blood Pressure Mean 105 105 Pulse Ox 100 100 Oxygen Delivery Method Room Air Room Air Room Air 09/29/23 11:23 Temperature Temperature Source Pulse Rate Respiratory Rate Respiratory Effort Respiratory Depth Respiratory Pattern Blood Pressure Blood Pressure Mean Pulse Ox Oxygen Delivery Method Room Air MDM <LLUVIA Artis - Last Filed: 09/29/23 13:20> [facility] Lab Data Labs: Laboratory Results - last 24 hr 09/29/23 11:00 WBC 7.6 RBC 4.07 L Hgb 11.9 L Hct 37.4 L MCV 91.9 MCH 29.2 MCHC 31.8 L RDW Std Deviation 49.3 H RDW Coeff of Seth 14.7 H Plt Count 246 MPV 9.4 Immature Gran % (Auto) 0.400 Neut % (Auto) 70.4 H Lymph % (Auto) 20.6 [place] % (Auto) 7.7 Eos % (Auto) 0.5 Baso % (Auto) 0.4 Absolute Neuts (auto) 5.3 Absolute Lymphs (auto) 1.56 Nucleated RBC % 0 Sodium 138 Potassium 3.8 Chloride 103 Carbon Dioxide 30.0 Anion Gap 5 BUN 19 H Creatinine 1.11 Estim Creat Clear Calc 47.39 Est GFR (MDRD) Af Amer 81 Est GFR (MDRD) Non-Af 67 BUN/Creatinine Ratio 17.1 Glucose 111 H Calcium 9.5 Troponin I High Sens 14 B-Natriuretic Peptide 1394.9 H Radiography Diagnostic Testing: Clinical Impression(s) from Imaging Studies Chest X-Ray 09/29/23 11:25 IMPRESSION: Improved right lower lung infiltrate. Electronically Signed: Scotty Black MD at 11:40 EDT , EKG Atrial fibrillation, right bundle branch block: Attestation: I personally reviewed and interpreted this EKG as follows: Comments: Atrial fibrillation with right bundle branch block, rate of 75 bpm, QRS duration 108 ms, no acute ST elevation, no acute infarct noted. Treatment and Re-Evaluation :: Differential diagnosis includes however is not limited to: Adult failure to thrive, community-acquired pneumonia, CHF exacerbation, anxiety, pulmonary embolus, respiratory virus, acute on chronic shortness of breath, anemia Patient appears to be in no obvious distress, he is tachypneic. Vital signs remained stable, patient appears nontoxic. Patient will receive a cardiac, pulmonary workup. Patient received basic laboratory values including a troponin, chest x-ray. BNP will also be assessed, patient shows no signs or symptoms of any infection, patient does not have a cough, patient also states that he is not eating and drinking. I am concerned that he is declining secondary to his illness of Parkinson's disease. Patient's CBC is stable, chronic anemia with hemoglobin 11.9, patient's chemistries show normal troponin, no electrolyte abnormalities. Patient's BNP is elevated at 1394. Less than 1 month ago on July 15, it was 788, significant increase. Patient be ambulated with a pulse ox.Patient's chest x-ray shows improved right lower lung infiltrate. Interpreted by ER physician. Patient was ambulated by nurse, patient dropped to 80%, was tachypneic, had trouble getting back to the room. Patient states that when this was going on, he did have some chest tightness. He states this is what been going on over the last several weeks. Patient states that he cannot live like this. At this time, secondary to the elevated BNP, 80% on ambulation, patient will need to be admitted to the hospital. I will reach out to the hospitalist. <Dr. Laron Nick, DO - Last Filed: 09/29/23 14:13> [facility] Lab Data Attestation: I reviewed the patient's lab results. Labs: Laboratory Results - last 24 hr 09/29/23 11:00 WBC 7.6 RBC 4.07 L Hgb 11.9 L Hct 37.4 L MCV 91.9 MCH 29.2 MCHC 31.8 L RDW Std Deviation 49.3 H RDW Coeff of Seth 14.7 H Plt Count 246 MPV 9.4 Immature Gran % (Auto) 0.400 Neut % (Auto) 70.4 H Lymph % (Auto) 20.6 [place] % (Auto) 7.7 Eos % (Auto) 0.5 Baso % (Auto) 0.4 Absolute Neuts (auto) 5.3 Absolute Lymphs (auto) 1.56 Nucleated RBC % 0 Sodium 138 Potassium 3.8 Chloride 103 Carbon Dioxide 30.0 Anion Gap 5 BUN 19 H Creatinine 1.11 Estim Creat Clear Calc 47.39 Est GFR (MDRD) Af Amer 81 Est GFR (MDRD) Non-Af 67 BUN/Creatinine Ratio 17.1 Glucose 111 H Calcium 9.5 Troponin I High Sens 14 B-Natriuretic Peptide 1394.9 H Radiography Diagnostic Testing: Clinical Impression(s) from Imaging Studies Chest X-Ray 09/29/23 11:25 IMPRESSION: Improved right lower lung infiltrate. Electronically Signed: Scotty Black MD at 11:40 EDT , Treatment and Re-Evaluation :: Differential diagnosis includes however is not limited to: Adult failure to thrive, community-acquired pneumonia, CHF exacerbation, anxiety, pulmonary embolus, respiratory virus, acute on chronic shortness of breath, anemia Patient appears to be in no obvious distress, he is tachypneic. Vital signs remained stable, patient appears nontoxic. Patient will receive a cardiac, pulmonary workup. Patient received basic laboratory values including a troponin, chest x-ray. BNP will also be assessed, patient shows no signs or symptoms of any infection, patient does not have a cough, patient also states that he is not eating and drinking. I am concerned that he is declining secondary to his illness of Parkinson's disease. Patient's CBC is stable, chronic anemia with hemoglobin 11.9, patient's chemistries show normal troponin, no electrolyte abnormalities. Patient's BNP is elevated at 1394. Less than 1 month ago on July 15, it was 788, significant increase. Patient be ambulated with a pulse ox.Patient's chest x-ray shows improved right lower lung infiltrate. Interpreted by ER physician. Patient was ambulated by nurse, patient dropped to 80%, was tachypneic, had trouble getting back to the room. Patient states that when this was going on, he did have some chest tightness. He states this is what been going on over the last several weeks. Patient states that he cannot live like this. At this time, secondary to the elevated BNP, 80% on ambulation, patient will need to be admitted to the hospital. I will reach out to the hospitalist. This patient was seen with a PA/PLASTIC MIXER Individually assessed they patient including history and physical. I have reviewed everything on the chart that is available and agree with the documentation provided by the PA/PLASTIC MIXER including discussion about the assessment, treatment plan, discussion, and return precautions. Differential as above. Patient presenting with generalized weakness, debility, shortness of breath. EKG A-fib at a rate of 85 bpm blood work today I will call radiology was fairly unremarkable with exception of a BNP of 1394. High-sensitivity troponin was 10. Chest x-ray on my interpretation shows this pneumonia is improved, and there is no any acute and I see. We attempted to walk the patient he dropped down to 80% ambulation is very symptomatic for this reason we will admit the patient. Hospitalist requested 40 Lasix to be given. Discharge Plan Dx/Rx/DC Orders Clinical Impression: Elevated brain natriuretic peptide (BNP) level, Weakness, Hypoxia, Tachypnea Disposition Disposition: Acute Care Hospital [facility] Discharge Date/Time: 09/29/23 14:08
--- NOTE | 2023-09-29 11:25 | RAD_ITS ---
INDICATION: cough EXAMINATION/TECHNIQUE: X-RAY - XR Chest 1 View COMPARISON: Prior study dated: 09/15/2023 FINDINGS: LINES/DEVICES: None. LUNGS: Improved right lower lung infiltrate. No evidence of pleural effusions. MEDIASTINUM AND CARDIOVASCULAR STRUCTURES: Cardiac silhouette not enlarged. Central airways and mediastinal contour are unremarkable. BONES AND SOFT TISSUES: Unremarkable. RAD/Chest 1 View (Portable) IMPRESSION: Improved right lower lung infiltrate. Electronically Signed: Scotty Black MD at 11:40 EDT ,
[2023-09-29 11:30] LABS: Absolute Lymphocyte Count 1.56 X10^3/uL (0.83-4.51); Absolute Neutrophil Count 5.3 X10^3/uL (2.0-7.7); Basophil# 0.03 X10^3/uL; Basophil% 0.4 % (0-1); Eosinophil# 0.04 X10^3/uL; Eosinophils% 0.5 % (0-5); Hematocrit 37.4 % (40-54); Hemoglobin 11.9 g/dL (13.0-16.5); Lymphocyte # 1.56 X10^3/ul (0.83-4.51); Lymphocyte % 20.6 % (19-41); Mean Corp Hgb Conc 31.8 g/dL (32-36); Mean Corpuscular Hgb 29.2 pg (27.0-32.0); Mean Corpuscular Volume 91.9 fL (80-94); Mean Platelet Vol. 9.4 fl (6.2-12.0); Monocyte# 0.58 X10^3/uL; Monocyte% 7.7 % (0-10); NRBC Flagged by Analyzer 0 % (0-5); Neutrophil # 5.32 X10^3/uL (2.7-7.7); Neutrophil % 70.4 % (47-70); Platelet Count 246 K/mm3 (150-450); RBC Distribution Width CV 14.7 % (11.6-14.6); RBC Distribution Width SD 49.3 fl (35.1-43.9); Red Blood Count 4.07 M/mm3 (4.6-6.2); White Blood Count 7.6 K/mm3 (4.4-11.0)
[2023-09-29 11:45] LABS: Anion Gap 5 (5-15); BUN 19 mg/dL (7-18); BUN/Creat Ratio 17.1 RATIO (10-20); Calcium,Total 9.5 mg/dL (8.5-10.1); Chloride 103 mmol/L (98-107); Creatinine, Serum 1.11 mg/dL (0.70-1.30); EST Glomerular Filtration Rate 67 mL/min (>60); Est Glom Filt Rate - Afr Amer 81 mL/min (>60); Estimated Creatinine Clearance 47.39 ml/min; Glucose 111 mg/dL (74-106); Potassium 3.8 mmol/L (3.5-5.1); Sodium Level 138 mmol/L (136-145); Troponin-I HS 14 pg/mL (3.0-78.0)
[2023-09-29 11:55] LABS: BNP,B-Type NATRIURETIC PEPTIDE 1394.9 pg/mL (0-100)
--- NOTE | 2023-09-29 12:44 | PCM.HP.STD ---
HPI - General General Date of Admission: 09/29/23 Date of Service: 09/29/23 HPI Narrative FARRAH HAYES, is a 82 M who presents with progressive generalized weakness and shortness of breath. Per patient symptoms symptoms started couple of weeks prior to his admission. He has noticed increasing shortness of breath with minimal activity. Patient also complains of chest tightness with ambulation. In view of progressive nature of symptoms patient presented to the emergency department. Initial set of cardiac enzymes and EKG came back unremarkable patient was however found to have elevated BNP and questionable vascular congestion. An assessment of acute congestive heart failure made admitted to a monitored bed for further management [facility] Medical History (Updated 09/29/23 @ 13:[address] Ever Lucero MD) Chronic kidney disease Failure to thrive in adult Hyperlipemia Esophageal reflux Atrial fibrillation Parkinson disease Hypertension Diabetes mellitus Home Medications ?Medication ?Instructions ?Recorded ?Last Taken ?Type amlodipine 2.5 mg tablet 2.5 mg PO DAILY BLOOD PRESSURE 09/15/23 09/15/23 History apixaban 5 mg tablet (Eliquis) 5 mg PO BID BLOOD THINNER 09/15/23 09/15/23 History carbidopa 25 mg-levodopa 100 mg 2 tab PO TID PARKINSONS 09/15/23 09/15/23 History tablet ipratropium bromide 42 mcg (0.06 2 spray intranasal TID RUNNY NOSE 09/15/23 09/14/23 History %) nasal spray lisinopril 10 mg tablet 10 mg PO DAILY BLOOD PRESSURE 09/15/23 09/15/23 History metoprolol tartrate 50 mg tablet 75 mg PO BID BLOOD PRESSURE 09/15/23 09/15/23 History mirtazapine 15 mg tablet 15 mg PO QHS DEPRESSION 09/15/23 09/15/23 History multivitamin (Daily Multi-Vitamin 1 tab PO DAILY HEALTH MAINTENANCE 09/15/23 09/15/23 History tablet) omeprazole 40 mg capsule,delayed 40 mg PO DAILY ACID REFLUX 09/15/23 09/15/23 History release pravastatin 10 mg tablet 10 mg PO DAILY CHOLESTEROL 09/15/23 09/15/23 History amoxicillin 875 mg-potassium 1 tab PO BID #14 tabs 09/17/23 Unknown Rx clavulanate 125 mg tablet furosemide 20 mg tablet (Lasix) 20 mg PO QODAY #30 tabs 09/17/23 Unknown Rx Allergy/AdvReac Type Severity Reaction Status Date / Time No Known Allergies Allergy Verified 09/29/23 10:48 Social History Smoking Status: Never smoker ROS ROS Narrative GENERAL: denies fever, chills, night sweats, weight loss, anorexia HEENT: denies headache, sinus congestion, or drainage, dysphagia RESPIRATORY: shortness of breath, dyspnea on exertion CARDIAC: orthopnea, GASTROINTESTINAL: denies abdominal pain, nausea, vomiting, melena, GENITOURINARY: denies dysuria, urgency, frequency, heamaturia EXTREMITY: denies swelling MUSCULOSKELETAL: denies current joint pain or tenderness NEUROLOGIC: denies focal numbness, weakness, tingling HEMATOLOGIC: denies easy bruising and/or hemorrhage INTEGUMENT: denies rashes PSYCHIATRIC: denies suicidal or homicidal ideation Vital Signs Vital Signs Vital Signs: 09/29/23 10:48 09/29/23 10:53 09/29/23 10:58 Temperature 96.3 F L 96.3 F L Temperature Source Temporal Temporal Pulse Rate 76 76 Respiratory Rate 29 H 29 H Respiratory Effort Short of Breath Respiratory Depth Shallow Respiratory Pattern Tachypnea Blood Pressure 130/93 H 130/93 H Blood Pressure Mean 105 105 Pulse Ox 100 100 Oxygen Delivery Method Room Air Room Air Room Air 09/29/23 11:23 Temperature Temperature Source Pulse Rate Respiratory Rate Respiratory Effort Respiratory Depth Respiratory Pattern Blood Pressure Blood Pressure Mean Pulse Ox Oxygen Delivery Method Room Air Weight Weight: 65.3 kg Body Mass Index (BMI) 19.5 Physical Exam Narrative GENERAL: cooperative, cachectic appearing HEENT: Atraumatic; normocephalic EYES; Anicteric, Normal Conjunctiva NECK; supple, normal thyroid, RESPIRATORY: Diminished to auscultation CARDIOVASCULAR: Irregularly irregular GI: soft, normoactive bowel sounds, : No Renal angle tenderness; EXTREMITIES: No edema, no clubbing, MUSCULOSKELETAL: no muscle wasting NEURO: Awake; no lateralizing signs. SKIN: No Rash PSYCH; Flat affect Results Lab / Micro Data 09/29/23 11:00 09/29/23 11:00 Labs: Laboratory Results - last 24 hr 09/29/23 11:00: WBC 7.6, RBC 4.07 L, Hgb 11.9 L, Hct 37.4 L, MCV 91.9, MCH 29.2, MCHC 31.8 L, RDW Std Deviation 49.3 H, RDW Coeff of Seth 14.7 H, Plt Count 246, MPV 9.4, Immature Gran % (Auto) 0.400, Neut % (Auto) 70.4 H, Lymph % (Auto) 20.6, [place] % (Auto) 7.7, Eos % (Auto) 0.5, Baso % (Auto) 0.4, Absolute Neuts (auto) 5.3, Absolute Lymphs (auto) 1.56, Nucleated RBC % 0, Sodium 138, Potassium 3.8, Chloride 103, Carbon Dioxide 30.0, Anion Gap 5, BUN 19 H, Creatinine 1.11, Estim Creat Clear Calc 47.39, Est GFR (MDRD) Af Amer 81, Est GFR (MDRD) Non-Af 67, BUN/Creatinine Ratio 17.1, Glucose 111 H, Calcium 9.5, Troponin I High Sens 14, B-Natriuretic Peptide 1394.9 H Imaging Radiology Impression Chest X-Ray 09/29/23 11:25 IMPRESSION: Improved right lower lung infiltrate. Electronically Signed: Scotty Black MD at 11:40 EDT , Assessment & Plan Assessment/Plan (1) CHF exacerbation: QUALIFIERS: Heart failure type: diastolic Qualified Code(s): I50.33 - Acute on chronic diastolic (congestive) heart failure PLAN: Plan Patient is an 82-year-old gentleman presented with progressive shortness of breath 1. Acute on chronic congestive heart failure with preserved ejection fraction ? Echo obtained on 09/15/2023 demonstrated EF of 65%. Patient has been admitted to a monitored bed managed with strict input and output, daily weight, fluid restriction, low-sodium diet as well as diuretic therapy with furosemide 2. Exertional dyspnea and chest tightness ? Possibly related to above however ordered serial cardiac enzymes and nuclear stress test in a.m. 3. Severe malnutrition ? As evidenced by suboptimal energy intake, weight loss, and severe physical changes consult placed to dietitian 4. Paroxysmal A-fib ? Rate controlled on metoprolol and on systemic anticoagulation with apixaban did continue 5. Hypertension - Blood pressure controlled, home medications continued with dose adjustment as needed 6. Parkinson's disease ? Patient is on carbidopa/levodopa did continue 7. Dyslipidemia -Patient is on statin therapy, continued at home dose 8. GERD ? Patient is on PPI 9. Physical deconditioning - Requested for PT OT eval and social worker assistant to assist with discharge planning 10. Anemia - Secondary to chronic disorder monitoring H&H and transfuse if patient becomes symptomatic or hemoglobin falls below 7 11. DVT prophylaxis ? Patient is on apixaban Time spent in the patient's overall evaluation,decision-making process, review of diagnostic data, adjustment of management, discussion with other providers, nursing nursing and ancillary staff involved in patient's care documentation, 77 minutes Advance planning; did discuss with the patient and family (his 2 sons) regarding advanced directives as well as CODE STATUS. Did explain the various scenarios involved ( FULL CODE, DNR CCA, DNR CCA with no intubation, and DNR CC and what each meant) patient elected to remain full code with CPR and intubation if warranted. Order was placed. Time spent on [id number] discussion 16 minutes. Charges/Coding Visit Charges Inpatient E&M: 73577 Init Hosp L3 Procedures Hospitalists Procedures: [id number] Advncd Care Plan 30 Min
--- NOTE | 2023-09-29 14:32 | EKG12_ITS ---
Test Reason : PRE STRESS TEST Blood Pressure : / mmHG Vent. Rate : 078 BPM Atrial Rate : 000 BPM P-R Int : 000 ms QRS Dur : 106 ms QT Int : 404 ms P-R-T Axes : 000 -83 044 degrees QTc Int : 460 ms Atrial fibrillation Incomplete right bundle branch block Left anterior fascicular block Abnormal ECG When compared with ECG of 29-SEP-2023 15:15, MANUAL COMPARISON REQUIRED, DATA IS UNCONFIRMED Confirmed by CHARLY GALLOWAY, IVELISSE ([id number]), pictures editor ELISEO SAN ([id number]) on 10/03/2023 8:27:08 AM Referred By: Confirmed By:IVELISSE PARKS MD
[2023-09-29] MEDS: Furosemide 40 MG/4 ML Vial IV ×2 (15:13→21:11)
[2023-09-29] MEDS: 0.9% Saline Lock 10 ML Syringe IV ×2 (15:13→21:19)
[2023-09-29] MEDS: Ensure Plus High Protein 120 ML LIQUID PO ×2 (18:01→21:05)
[2023-09-29] MEDS: Metoprolol Tartrate 25 MG Tablet 75 MG PO (20:58)
[2023-09-29] MEDS: APIXABAN 5 MG TABLET PO (20:58)
[2023-09-29] MEDS: Ipratropium Bromide 0.06% NASAL SPRAY 2 SPRAY NASAL (20:59)
[2023-09-29] MEDS: Menthol/Lanolin/Calamine/Znox 113 GM Tube 1 APPLIC TOPICAL (20:59)
[2023-09-29] MEDS: Pravastatin 20 MG Tablet 10 MG PO (21:00)
[2023-09-29] MEDS: Mirtazapine 15 MG Tablet PO (21:02)
[2023-09-29] MEDS: guaiFENesin 10 ML UDC (200MG/10ML) 20 ML PO (21:09)
[2023-09-29] MEDS: Acetaminophen 325 MG Tablet 650 MG PO (23:02)
[2023-09-30] VITALS (9 sets, daily range): BP systolic 94–121; BP diastolic 48–79; PULSE 64–116; RESP 18; TEMP 36.1–36.7; O2SAT 96–100; BMI 17.7
[2023-09-30 05:43] LABS: Hematocrit 35.7 % (40-54); Hemoglobin 11.4 g/dL (13.0-16.5); Mean Corp Hgb Conc 31.9 g/dL (32-36); Mean Corpuscular Hgb 28.9 pg (27.0-32.0); Mean Corpuscular Volume 90.6 fL (80-94); Platelet Count 236 K/mm3 (150-450); RBC Distribution Width CV 14.6 % (11.6-14.6); RBC Distribution Width SD 48.4 fl (35.1-43.9); Red Blood Count 3.94 M/mm3 (4.6-6.2); White Blood Count 8.2 K/mm3 (4.4-11.0)
--- NOTE | 2023-09-30 05:55 | EKG12_ITS ---
Test Reason : Blood Pressure : / mmHG Vent. Rate : 084 BPM Atrial Rate : 000 BPM P-R Int : 000 ms QRS Dur : 094 ms QT Int : 386 ms P-R-T Axes : 000 -79 047 degrees QTc Int : 456 ms Atrial fibrillation Incomplete right bundle branch block Left anterior fascicular block Abnormal ECG When compared with ECG of 29-SEP-2023 11:34, MANUAL COMPARISON REQUIRED, DATA IS UNCONFIRMED Confirmed by CHARLY GALLOWAY, IVELISSE ([id number]), video tape editor ELISEO SAN ([id number]) on 10/03/2023 8:27:21 AM Referred By: STEPHY Confirmed By:IVELISSE PARKS MD
[2023-09-30] MEDS: Ipratropium Bromide 0.06% NASAL SPRAY 2 SPRAY NASAL ×3 (06:48→22:20)
[2023-09-30] MEDS: Lisinopril 10 MG Tablet PO (06:49)
[2023-09-30 06:52] LABS: Troponin-I HS 15 pg/mL (3.0-78.0)
[2023-09-30 07:23] LABS: Anion Gap 6 (5-15); BUN 24 mg/dL (7-18); BUN/Creat Ratio 18.8 RATIO (10-20); Calcium,Total 9.2 mg/dL (8.5-10.1); Chloride 102 mmol/L (98-107); Creatinine, Serum 1.28 mg/dL (0.70-1.30); EST Glomerular Filtration Rate 57 mL/min (>60); Est Glom Filt Rate - Afr Amer 69 mL/min (>60); Estimated Creatinine Clearance 37.32 ml/min; Glucose 93 mg/dL (74-106); Phosphorus 4.1 mg/dL (2.5-4.9); Potassium 3.6 mmol/L (3.5-5.1); Sodium Level 139 mmol/L (136-145)
--- NOTE | 2023-09-30 07:34 | PCM.PN.HOSP ---
Reason for Visit Reason for Visit: Diagnoses Acute on chronic diastolic (congestive) heart failure (09/29/23) Subjective Subjective Patient seen still complains of chest tightness. Patient is in negative fluid balance of 990 since admission. Troponin is negative. Plan is for patient to undergo subsequent evaluation with a nuclear stress test Objective Data Objective Data Vital Signs: Vital Signs Temp Pulse Resp BP Pulse Ox O2 Del Method O2 Flow Rate 97.5 F L 64 18 109/79 100 Room Air 2 09/30/23 06:41 09/30/23 06:41 09/30/23 06:41 09/30/23 06:41 09/30/23 06:41 09/30/23 06:41 09/30/23 02:50 Oxygen Flow Rate (L/min) 2 Oxygen Delivery Method Room Air Weight: 59.3 kg Body Mass Index (BMI) 17.7 Intake & Output: Intake and Output for Last 24 Hours 09/28/23 09/29/23 09/30/23 23:59 23:59 23:59 Intake Total 710 / 710 Output Total 1700 / 1700 Balance -990 / -990 Lab / Micro Data 09/30/23 05:18 09/30/23 05:18 Labs: Laboratory Results - last 24 hr 09/29/23 11:00: WBC 7.6, RBC 4.07 L, Hgb 11.9 L, Hct 37.4 L, MCV 91.9, MCH 29.2, MCHC 31.8 L, RDW Std Deviation 49.3 H, RDW Coeff of Seth 14.7 H, Plt Count 246, MPV 9.4, Immature Gran % (Auto) 0.400, Neut % (Auto) 70.4 H, Lymph % (Auto) 20.6, [place] % (Auto) 7.7, Eos % (Auto) 0.5, Baso % (Auto) 0.4, Absolute Neuts (auto) 5.3, Absolute Lymphs (auto) 1.56, Nucleated RBC % 0, Sodium 138, Potassium 3.8, Chloride 103, Carbon Dioxide 30.0, Anion Gap 5, BUN 19 H, Creatinine 1.11, Estim Creat Clear Calc 47.39, Est GFR (MDRD) Af Amer 81, Est GFR (MDRD) Non-Af 67, BUN/Creatinine Ratio 17.1, Glucose 111 H, Calcium 9.5, Troponin I High Sens 14, B-Natriuretic Peptide 1394.9 H 09/30/23 05:18: WBC 8.2, RBC 3.94 L, Hgb 11.4 L, Hct 35.7 L, MCV 90.6, MCH 28.9, MCHC 31.9 L, RDW Std Deviation 48.4 H, RDW Coeff of Seth 14.6, Plt Count 236, MPV 9.0, Sodium 139, Potassium 3.6, Chloride 102, Carbon Dioxide 31.0, Anion Gap 6, BUN 24 H, Creatinine 1.28, Estim Creat Clear Calc 37.32, Est GFR (MDRD) Af Amer 69, Est GFR (MDRD) Non-Af 57 L, BUN/Creatinine Ratio 18.8, Glucose 93, Calcium 9.2, Phosphorus 4.1, Magnesium 2.0, Troponin I High Sens 15 Radiography Diagnostic Testing: Radiology Impression Chest X-Ray 09/29/23 11:25 IMPRESSION: Improved right lower lung infiltrate. Electronically Signed: Scotty Black MD at 11:40 EDT , Physical Exam Narrative GENERAL: cooperative, cachectic appearing HEENT: Atraumatic; normocephalic EYES; Anicteric, Normal Conjunctiva NECK; supple, normal thyroid, RESPIRATORY: Diminished to auscultation CARDIOVASCULAR: Irregularly irregular GI: soft, normoactive bowel sounds, : No Renal angle tenderness; EXTREMITIES: No edema, no clubbing, MUSCULOSKELETAL: no muscle wasting NEURO: Awake; no lateralizing signs. SKIN: No Rash PSYCH; Flat affect Assessment & Plan Assessment/Plan (1) CHF exacerbation: QUALIFIERS: Heart failure type: diastolic Qualified Code(s): I50.33 - Acute on chronic diastolic (congestive) heart failure PLAN: Plan Patient is an 82-year-old gentleman presented with progressive shortness of breath 1. Acute on chronic congestive heart failure with preserved ejection fraction ? Echo obtained on 09/15/2023 demonstrated EF of 65%. Patient has been admitted to a monitored bed managed with strict input and output, daily weight, fluid restriction, low-sodium diet as well as diuretic therapy with furosemide -09/30/2023; patient is negative fluid balance of 990. 2. Exertional dyspnea and chest tightness ? Possibly related to above however ordered serial cardiac enzymes and nuclear stress test in a.m. -09/30/2023;Patient seen still complains of chest tightness. Troponin is negative. Plan is for patient to undergo subsequent evaluation with a nuclear stress test 3. Severe malnutrition ? As evidenced by suboptimal energy intake, weight loss, and severe physical changes consult placed to dietitian 4. Paroxysmal A-fib ? Rate controlled on metoprolol and on systemic anticoagulation with apixaban did continue 5. Hypertension - Blood pressure controlled, home medications continued with dose adjustment as needed 6. Parkinson's disease ? Patient is on carbidopa/levodopa did continue 7. Dyslipidemia -Patient is on statin therapy, continued at home dose 8. GERD ? Patient is on PPI 9. Physical deconditioning - Requested for PT OT eval and forensic social worker to assist with discharge planning 10. Anemia - Secondary to chronic disorder monitoring H&H and transfuse if patient becomes symptomatic or hemoglobin falls below 7 11. DVT prophylaxis ? Patient is on apixaban Time spent in the patient's overall evaluation,decision-making process, review of diagnostic data, adjustment of management, discussion with other providers, nursing nursing and ancillary staff involved in patient's care documentation, 52 minutes Charges/Coding Visit Charges Inpatient E&M: 88221 [facility] Hosp L3
--- NOTE | 2023-09-30 10:27 | CASEMGMT ---
SUSANNAH CM to pt room at this time for readmission/ chart review. Pt is currently off of the floor for a stress test. Will follow.
--- NOTE | 2023-09-30 10:52 | STRESSREP ---
Stress Test Report Date: 09/30/2023 Procedure: Pharmacologic stress nuclear imaging study Indications: Dyspnea Consent: Per the patient Procedure: The patient underwent pharmacologic (Regadenoson 0.4mg ) evaluation with a peak heart rate of 120 beats per minute (86%predicted maximal heart rate) and a peak blood pressure of 122/74 mmHg. The baseline ECG demonstrated atrial fibrillation. The peak pharmacologic ECG demonstrated nonspecific ST changes. Baseline atrial fibrillation. There was no complaint of chest discomfort during pharmacologic infusion or recovery. The patient was injected with 11.6 millicuries of technetium 99m Cardiolite and subsequently rest SPECT Cardiolite nuclear imaging was obtained in the horizontal long, vertical long, and short axis views. The patient underwent pharmacologic (Regadenoson) evaluation. The patient was injected with 33.4 millicuries of technetium 99m Cardiolite and subsequently stress SPECT Cardiolite nuclear imaging was obtained in the horizontal long, vertical long, and short axis views. A gated Cardiolite study at peak stress was obtained. The examination was stopped secondary to completion of protocol. Rest and stress SPECT Cardiolite nuclear imaging status post realignment, normalization, and attenuation correction demonstrate no fixed or reversible perfusion defects. There is end systolic thickening and brightening. The gated Cardiolite study demonstrates myocardial thickening and inward wall motion. The reported LVEF is 84%. Impression: 1. Pharmacologic (Regadenoson) evaluation 2. Peak pharmacologic ECG with no ischemic changes. 3. Baseline atrial fibrillation. 5. Rest and stress SPECT Cardiolite nuclear imaging demonstrate relative uniform tracer uptake and myocardial perfusion appearing within normal limits. 6. The gated Cardiolite study reports an LVEF of 84%. This note was generated with [employer] software. It may contain incorrect words, spelling, and punctuation that were not noted in checking the note before signing.
[2023-09-30] MEDS: Furosemide 40 MG/4 ML Vial IV ×2 (11:10→16:58)
[2023-09-30] MEDS: Metoprolol Tartrate 25 MG Tablet 75 MG PO ×2 (11:10→22:21)
[2023-09-30] MEDS: 0.9% Saline Lock 10 ML Syringe IV ×2 (11:11→16:58)
[2023-09-30] MEDS: Pantoprazole Sodium 40 MG Tablet PO (11:11)
[2023-09-30] MEDS: Carbidopa/Levodopa 25/100 Tablet PO ×2 (11:11→16:58)
[2023-09-30] MEDS: APIXABAN 5 MG TABLET PO ×2 (11:27→22:21)
--- NOTE | 2023-09-30 11:34 | CASEMGMT ---
Readmission Note: Index: 09/14-09/17/23. Dx: Hypoxia, Community-Acquired Pneumonia Readmission: 09/29/23. Dx: CHF, FTT On index admission, the pt was discharged with an Rx for OP therapy. Pt states that he cannot remember if he went to OP therapy in between visits at [facility]. Pt also declined HHC during the index admission. Pt was also recommended a soft diet after DC from index admission. Pt states that he just ate a regular diet once he got home. Pt did buy [employer]'s Brand of Ensure once he got home. Pt states that he did follow up with his PCP. Pt was able to get his ATB Rx and Lasix and take them as prescribed. Pt did not qualify for home O2 from the previous admission. Pt then re-presents to [facility] with generalized weakness and shortness of breath. Pt is currently 99% on RA. Pt recently returned from a stress test. Moving forward, the pt states that it is too early in his stay to decide what he would like to do at the time of DC. There has been discussion of the pt qualifying for SNF placement. CM and SW to follow pt progression in the hospital to ensure a safe DC plan once the pt is medically ready.
[2023-09-30] MEDS: Ensure Plus High Protein 120 ML LIQUID PO ×2 (13:42→16:58)
[2023-09-30] MEDS: Menthol/Lanolin/Calamine/Znox 113 GM Tube 1 APPLIC TOPICAL ×2 (13:42→22:20)
[2023-09-30] MEDS: Glycerin/Hypromellose/PEG400 15 ml Bottle 2 DRP EACH EYE ×2 (18:16→22:19)
[2023-09-30] MEDS: Pravastatin 20 MG Tablet 10 MG PO (22:22)
[2023-09-30] MEDS: Mirtazapine 15 MG Tablet PO (22:24)
[2023-10-01] VITALS (8 sets, daily range): BP systolic 88–120; BP diastolic 57–70; PULSE 90–104; RESP 14–18; TEMP 36.3–36.6; O2SAT 93–99; BMI 18.0
[2023-10-01] MEDS: 0.9% Saline Lock 10 ML Syringe IV (04:13)
[2023-10-01] MEDS: Magnesium Sulfate 1 GM in Dextrose 5%-Water (100mL Bag) 100 ML IV (04:16)
[2023-10-01 05:30] LABS: Hematocrit 35.3 % (40-54); Hemoglobin 11.5 g/dL (13.0-16.5); Mean Corp Hgb Conc 32.6 g/dL (32-36); Mean Corpuscular Hgb 29.6 pg (27.0-32.0); Platelet Count 230 K/mm3 (150-450); RBC Distribution Width CV 14.7 % (11.6-14.6); RBC Distribution Width SD 48.7 fl (35.1-43.9); Red Blood Count 3.88 M/mm3 (4.6-6.2); White Blood Count 6.5 K/mm3 (4.4-11.0)
[2023-10-01 05:56] LABS: Anion Gap 5 (5-15); BUN 28 mg/dL (7-18); BUN/Creat Ratio 19.4 RATIO (10-20); Calcium,Total 9.3 mg/dL (8.5-10.1); Chloride 99 mmol/L (98-107); Creatinine, Serum 1.44 mg/dL (0.70-1.30); EST Glomerular Filtration Rate 50 mL/min (>60); Est Glom Filt Rate - Afr Amer 60 mL/min (>60); Estimated Creatinine Clearance 33.68 ml/min; Glucose 115 mg/dL (74-106); Potassium 3.6 mmol/L (3.5-5.1); Sodium Level 137 mmol/L (136-145)
[2023-10-01] MEDS: Ipratropium Bromide 0.06% NASAL SPRAY 2 SPRAY NASAL ×3 (06:10→22:13)
[2023-10-01] MEDS: Glycerin/Hypromellose/PEG400 15 ml Bottle 2 DRP EACH EYE (06:10)
[2023-10-01] MEDS: Menthol/Lanolin/Calamine/Znox 113 GM Tube 1 APPLIC TOPICAL ×2 (06:10→22:08)
[2023-10-01] MEDS: Carbidopa/Levodopa 25/100 Tablet PO ×3 (06:10→16:59)
[2023-10-01] MEDS: APIXABAN 5 MG TABLET PO ×2 (08:52→22:10)
[2023-10-01] MEDS: Multivitamins,Therapeutic Tablet 1 TABLET PO (08:54)
[2023-10-01] MEDS: Metoprolol Tartrate 25 MG Tablet 75 MG PO (08:54)
--- NOTE | 2023-10-01 09:09 | PCM.PN.HOSP ---
Reason for Visit Reason for Visit: Diagnoses Acute on chronic diastolic (congestive) heart failure (09/29/23) Subjective Subjective Patient seen still complains of being short of breath despite not being on oxygen. Nuclear stress test ordered the day prior came back unremarkable. Objective Data Objective Data Vital Signs: Vital Signs Temp Pulse Resp BP Pulse Ox O2 Del Method O2 Flow Rate 97.5 F L 104 H 16 107/63 93 Room Air 2 10/01/23 08:43 10/01/23 08:54 10/01/23 08:43 10/01/23 08:43 10/01/23 08:43 10/01/23 08:43 09/30/23 02:50 Oxygen Flow Rate (L/min) 2 Oxygen Delivery Method Room Air Weight: 60.2 kg Body Mass Index (BMI) 18.0 Intake & Output: Intake and Output for Last 24 Hours 09/29/23 09/30/23 10/01/23 23:59 23:59 23:59 Intake Total 710 / 710 300 / 300 102 / 102 Output Total 1700 / 1700 600 / 600 300 / 300 Balance -990 / -990 -300 / -300 -198 / -198 Medical Nutrition Assessment Dietitian: Malnutrition Criteria Met Start: 09/30/23 14:03 Freq: Status: Active Protocol: Document 09/30/23 14:03 SLA (Rec: 09/30/23 14:03 SLA [email or web address]) Nutrition Malnutrition Evidence of Malnutrition Exists Yes Malnutrition (severe): Chronic Evidenced By Suboptimal Energy Intake ( Severe),Weight Loss (Severe), Physical Changes (Severe) Clinical Problem Chronic Disease or Condition Related Malnutrition Etiology related to issues w/ dysphagia and increased fatigue making it difficult for res to have adequate energy intake Signs/Symptoms as evidenced 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 , po intake meeting <75% of est nutritional needs, severe fat loss/muscle depletion throughout body and BMI 17.7 Status Active Problem Biting/Chewing Difficulty Etiology swallowing difficulty r/t issues w/ dysphagia Signs/Symptoms as evidenced by need for mech altered foods and fluids Status Active Problem Recommendation Dietitian Recommendations/Changes Continue LIBERAL REGULAR diet, consistency per PHYSICIAN ASSISTANT CERTIFIED, d/t signs and symptoms of malnutrition Continue ensure plus high protein 4x/day w/ medpass Provide magic cup ice cream w/ lunch and dinner for increased nutrition if consumed Rec consider appetite stimulant to help encourage increased po intake. Lab / Micro Data 10/01/23 05:16 10/01/23 05:16 Labs: Laboratory Results - last 24 hr 10/01/23 05:16: WBC 6.5, RBC 3.88 L, Hgb 11.5 L, Hct 35.3 L, MCV 91.0, MCH 29.6, MCHC 32.6, RDW Std Deviation 48.7 H, RDW Coeff of Seth 14.7 H, Plt Count 230, MPV 9.0, Sodium 137, Potassium 3.6, Chloride 99, Carbon Dioxide 33.0 H, Anion Gap 5, BUN 28 H, Creatinine 1.44 H, Estim Creat Clear Calc 33.68, Est GFR (MDRD) Af Amer 60, Est GFR (MDRD) Non-Af 50 L, BUN/Creatinine Ratio 19.4, Glucose 115 H, Calcium 9.3 Physical Exam Narrative GENERAL: cooperative, cachectic appearing HEENT: Atraumatic; normocephalic EYES; Anicteric, Normal Conjunctiva NECK; supple, normal thyroid, RESPIRATORY: Diminished to auscultation CARDIOVASCULAR: Irregularly irregular GI: soft, normoactive bowel sounds, : No Renal angle tenderness; EXTREMITIES: No edema, no clubbing, MUSCULOSKELETAL: no muscle wasting NEURO: Awake; no lateralizing signs. SKIN: No Rash PSYCH; significantly flat affect Assessment & Plan Assessment/Plan (1) CHF exacerbation: QUALIFIERS: Heart failure type: diastolic Qualified Code(s): I50.33 - Acute on chronic diastolic (congestive) heart failure PLAN: Plan Patient is an 82-year-old gentleman presented with progressive shortness of breath 1. Acute on chronic congestive heart failure with preserved ejection fraction ? Echo obtained on 09/15/2023 demonstrated EF of 65%. Patient has been admitted to a monitored bed managed with strict input and output, daily weight, fluid restriction, low-sodium diet as well as diuretic therapy with furosemide -09/30/2023; patient is negative fluid balance of 990. ?10/01/2023; adjusted patient diuretic therapy given relatively low blood pressure. 2. Exertional dyspnea and chest tightness ? Possibly related to above however ordered serial cardiac enzymes and nuclear stress test in a.m. -09/30/2023;Patient seen still complains of chest tightness. Troponin is negative. Plan is for patient to undergo subsequent evaluation with a nuclear stress test ? 10/01/2023; seen still complains of being short of breath despite not being on oxygen. Nuclear stress test ordered the day prior came back unremarkable 3. Severe malnutrition ? As evidenced by suboptimal energy intake, weight loss, and severe physical changes consult placed to dietitian 4. Paroxysmal A-fib ? Rate controlled on metoprolol and on systemic anticoagulation with apixaban did continue 5. Hypertension - Blood pressure controlled, home medications continued with dose adjustment as needed 6. Parkinson's disease ? Patient is on carbidopa/levodopa did continue 7. Dyslipidemia -Patient is on statin therapy, continued at home dose 8. GERD ? Patient is on PPI 9. Physical deconditioning - Requested for PT OT eval and public health social worker to assist with discharge planning ? 09/26/2023; awaiting insurance precertification prior to transfer to snf facility 10. Anemia - Secondary to chronic disorder monitoring H&H and transfuse if patient becomes symptomatic or hemoglobin falls below 7 11. DVT prophylaxis ? Patient is on apixaban Time spent in the patient's overall evaluation,decision-making process, review of diagnostic data, adjustment of management, discussion with other providers, nursing nursing and ancillary staff involved in patient's care documentation, 38 minutes Charges/Coding Visit Charges Inpatient E&M: 40125 Subs Hosp L2
[2023-10-01] MEDS: Metoprolol Tartrate 50 MG Tablet PO ×2 (12:32→22:11)
--- NOTE | 2023-10-01 12:43 | CASEMGMT ---
Social Work SW met w/pt in regard to discharge plan. Pt states wants to go home. 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 He went to [place] on [place] [address], ended up in the hospital, then a retirement for a month. Pt states he went to 3 different nursing homes in [place]. He states he is not going to a retirement again, will go home. Pt lives with his son William who will help him at home, states William is 61, is 250 pounds, and can help him as needed. Pt is agreeable to home health care. Pt agreeable to [facility]. At this time a home health care list is not needed, declined list. SW let CM know, let physician know. It is likely pt will go home today. SHEFALI Rousseau
--- NOTE | 2023-10-01 12:46 | PCM.DC.SUM ---
Providers Date of Admission: 09/29/23 Date of Discharge: 10/01/23 Primary Care Physician: Dr. Idris Moise MD Consultations 09/29/23 15:43 Consult: Onc/Wound/director traffic and planning Routine Comment: Comments:: Chronic rt buttock pressure ulcer Reason For Visit: CHF, FTT Diagnosis Discharge Diagnosis (1) CHF exacerbation: Status: Chronic Code(s): I50.9 - Heart failure, unspecified Qualifiers: Heart failure type: diastolic Qualified Code(s): I50.33 - Acute on chronic diastolic (congestive) heart failure Plan Patient is an 82-year-old gentleman presented with progressive shortness of breath 1. Acute on chronic congestive heart failure with preserved ejection fraction ? Echo obtained on 09/15/2023 demonstrated EF of 65%. Patient has been admitted to a monitored bed managed with strict input and output, daily weight, fluid restriction, low-sodium diet as well as diuretic therapy with furosemide -09/30/2023; patient is negative fluid balance of 990. ?10/01/2023; adjusted patient diuretic therapy given relatively low blood pressure. His home meds adjusted on discharge 2. Exertional dyspnea and chest tightness ? Possibly related to above however ordered serial cardiac enzymes and nuclear stress test in a.m. -09/30/2023;Patient seen still complains of chest tightness. Troponin is negative. Plan is for patient to undergo subsequent evaluation with a nuclear stress test ? 10/01/2023; seen still complains of being short of breath despite not being on oxygen. Nuclear stress test ordered the day prior came back unremarkable 3. Severe malnutrition ? As evidenced by suboptimal energy intake, weight loss, and severe physical changes consult placed to dietitian 4. Paroxysmal A-fib ? Rate controlled on metoprolol and on systemic anticoagulation with apixaban did continue 5. Hypertension - Blood pressure controlled, home medications continued with dose adjustment as needed 6. Parkinson's disease ? Patient is on carbidopa/levodopa did continue 7. Dyslipidemia -Patient is on statin therapy, continued at home dose 8. GERD ? Patient is on PPI 9. Physical deconditioning - Requested for PT OT eval and social media marketing specialist to assist with discharge planning ? 09/26/2023; awaiting insurance precertification prior to transfer to assisted facility ? Plan was for patient to be discharged to a assisted facility however requested to be discharged home with home health stating that his son could take care of him at home. 10. Anemia - Secondary to chronic disorder monitoring H&H and transfuse if patient becomes symptomatic or hemoglobin falls below 7 11. DVT prophylaxis ? Patient is on apixaban Time spent in the patient's overall evaluation,decision-making process, review of diagnostic data, adjustment of management, discussion with other providers, nursing nursing and ancillary staff involved in patient's care documentation, 38 minutes Medications at Discharge Home Medications apixaban 5 mg tablet (Eliquis) 5 mg PO BID BLOOD THINNER 09/15/23 carbidopa 25 mg-levodopa 100 mg tablet 2 tab PO TID PARKINSONS 09/15/23 ipratropium bromide 42 mcg (0.06 %) nasal spray 2 spray intranasal TID RUNNY NOSE 09/15/23 mirtazapine 15 mg tablet 15 mg PO QHS DEPRESSION 09/15/23 multivitamin (Daily Multi-Vitamin tablet) 1 tab PO DAILY HEALTH MAINTENANCE 09/15/23 omeprazole 40 mg capsule,delayed release 40 mg PO DAILY ACID REFLUX 09/15/23 pravastatin 10 mg tablet 10 mg PO DAILY CHOLESTEROL 09/15/23 furosemide 20 mg tablet (Lasix) 20 mg PO BID water pill #60 tabs 10/01/23 guaifenesin 1,200 mg tablet, extended release 12 hr (Mucus Relief ER) 1,200 mg PO BID #20 tabs 10/01/23 lisinopril 2.5 mg tablet 2.5 mg PO DAILY #30 tabs 10/01/23 metoprolol tartrate 25 mg tablet 25 mg PO BID #60 tabs 10/01/23 Physical Exam Narrative GENERAL: cooperative, cachectic appearing HEENT: Atraumatic; normocephalic EYES; Anicteric, Normal Conjunctiva NECK; supple, normal thyroid, RESPIRATORY: Diminished to auscultation CARDIOVASCULAR: Irregularly irregular GI: soft, normoactive bowel sounds, : No Renal angle tenderness; EXTREMITIES: No edema, no clubbing, MUSCULOSKELETAL: no muscle wasting NEURO: Awake; no lateralizing signs. SKIN: No Rash PSYCH; significantly flat affect Medical Records Data Medical Nutrition Assessment Dietitian: Malnutrition Criteria Met Start: 09/30/23 14:03 Freq: Status: Active Protocol: Document 09/30/23 14:03 SLA (Rec: 09/30/23 14:03 [facility] [id number]) Nutrition Malnutrition Evidence of Malnutrition Exists Yes Malnutrition (severe): Chronic Evidenced By Suboptimal Energy Intake ( Severe),Weight Loss (Severe), Physical Changes (Severe) Clinical Problem Chronic Disease or Condition Related Malnutrition Etiology related to issues w/ dysphagia and increased fatigue making it difficult for res to have adequate energy intake Signs/Symptoms as evidenced by 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 , po intake meeting <75% of est nutritional needs, severe fat loss/muscle depletion throughout body and BMI 17.7 Status Active Problem Biting/Chewing Difficulty Etiology swallowing difficulty r/t issues w/ dysphagia Signs/Symptoms as evidenced by need for mech altered foods and fluids Status Active Problem Recommendation Dietitian Recommendations/Changes Continue LIBERAL REGULAR diet, consistency per GEOGRAPHY INSTRUCTOR, d/t signs and symptoms of malnutrition Continue ensure plus high protein 4x/day w/ medpass Provide magic cup ice cream w/ lunch and dinner for increased nutrition if consumed Rec consider appetite stimulant to help encourage increased po intake. Weight / BMI Weight Weight: 60.2 kg Body Mass Index (BMI) 18.0 ABG / Lab / Microbiology Data 10/01/23 05:16 10/01/23 05:16 Laboratory: Laboratory Results - last 24 hr 10/01/23 05:16: WBC 6.5, RBC 3.88 L, Hgb 11.5 L, Hct 35.3 L, MCV 91.0, MCH 29.6, MCHC 32.6, RDW Std Deviation 48.7 H, RDW Coeff of Seth 14.7 H, Plt Count 230, MPV 9.0, Sodium 137, Potassium 3.6, Chloride 99, Carbon Dioxide 33.0 H, Anion Gap 5, BUN 28 H, Creatinine 1.44 H, Estim Creat Clear Calc 33.68, Est GFR (MDRD) Af Amer 60, Est GFR (MDRD) Non-Af 50 L, BUN/Creatinine Ratio 19.4, Glucose 115 H, Calcium 9.3 D/C Instructions Discharge Diet: 8 Cup Fluid Restriction and 2000 mg Sodium Diet Discharge Activity: Return to Normal Activity Call your doctor if you observe: Fever of 101 or Higher, Shortness of breath, Fainting spells and Chest pain Meaningful Use Info Meaningful Use Meaningful Use Diagnoses (Choose all that apply): CHF CHF JANINE/ARB ordered at discharge?: Yes Documented LVEF (%): 65 Ischemic Stroke Statin Dosing Therapy Reference: STATIN DOSE THERAPY REFERENCE: * Patients > 75 years receive moderate or high dose statin therapy. * Patients 75 years or YOUNGER should receive HIGH intensity statin dose unless contraindicated. You will be required to document reason for non-treatment if statin daily dose does not meet guidelines. HIGH DOSE STATIN THERAPY DAILY Atorvastatin > than or = to 40 mg Rosuvastatin > than or = to 20 mg Amlodipine + Atorvastatin > than or = to 2.5/40 mg Ezetimibe + Simvastatin 10/80 mg Simvastatin 80mg Discharge Plan Admission Admit Date/Time: 09/29/23 12:41 Attending Provider: Ever Lucero Primary Care Provider: Idris Moise Discharge Orders/Prescriptions Prescriptions: New lisinopril 2.5 mg Tablet 2.5 mg PO DAILY Qty: 30 0RF guaifenesin [Mucus Relief ER] 1,200 mg Tablet Extended Release 12hr 1,200 mg PO BID Qty: 20 0RF metoprolol tartrate 25 mg tablet 25 mg PO BID Qty: 60 0RF Continued omeprazole 40 mg capsule,delayed release(DR/EC) 40 mg PO DAILY pravastatin 10 mg tablet 10 mg PO DAILY mirtazapine 15 mg tablet 15 mg PO QHS ipratropium bromide 42 mcg (0.06 %) spray,non-aerosol 2 spray INTRANASAL TID carbidopa-levodopa 25-100 mg tablet 2 tab PO TID Eliquis 5 mg tablet 5 mg PO BID multivitamin [Daily Multi-Vitamin] Tablet 1 tab PO DAILY Changed furosemide [Lasix] 20 mg tablet 20 mg PO BID Qty: 60 0RF Discontinued amlodipine 2.5 mg tablet 2.5 mg PO DAILY lisinopril 10 mg tablet 10 mg PO DAILY metoprolol tartrate 50 mg tablet 75 mg PO BID Referrals / Follow Up: Idris Moise MD [Primary Care Provider] - Idris Moise MD [[facility]] - Disposition Disposition (needs filled in before D/C Order can be placed): Home Health Service Charges/Coding Visit Charges Inpatient E&M: 12802 Disch Hosp >30min
--- NOTE | 2023-10-01 12:58 | CASEMGMT ---
SUSANNAH GILES updated by ATA that patient will be going home with son and would like [facility]. SUSANNAH GILES called [facility] and left referral, will follow-up Tuesday with acceptance. SUSANNAH GILES updated patient regarding referral and explained that patient can discharge and CM and [facility] will follow-up on Tuesday with acceptance. Patient had no further questions or concerns at this time.
[2023-10-01] MEDS: Ensure Plus High Protein 120 ML LIQUID PO (22:09)
[2023-10-01] MEDS: Pravastatin 20 MG Tablet 10 MG PO (22:12)
[2023-10-01] MEDS: Mirtazapine 15 MG Tablet PO (22:13)
[2023-10-02 03:28] VITALS: BP 107/80; PULSE 96; RESP 18; TEMP 36.3; O2SAT 94
[2023-10-02 03:48] VITALS: BMI 17.8
[2023-10-02] MEDS: Carbidopa/Levodopa 25/100 Tablet PO ×2 (06:02→11:40)
[2023-10-02] MEDS: Ipratropium Bromide 0.06% NASAL SPRAY 2 SPRAY NASAL (06:02)
[2023-10-02] MEDS: Menthol/Lanolin/Calamine/Znox 113 GM Tube 1 APPLIC TOPICAL (06:03)
[2023-10-02 06:10] LABS: Hematocrit 38.5 % (40-54); Hemoglobin 12.2 g/dL (13.0-16.5); Mean Corp Hgb Conc 31.7 g/dL (32-36); Mean Corpuscular Hgb 28.9 pg (27.0-32.0); Mean Corpuscular Volume 91.2 fL (80-94); Mean Platelet Vol. 9.3 fl (6.2-12.0); Platelet Count 276 K/mm3 (150-450); RBC Distribution Width CV 14.6 % (11.6-14.6); RBC Distribution Width SD 48.6 fl (35.1-43.9); Red Blood Count 4.22 M/mm3 (4.6-6.2); White Blood Count 8.9 K/mm3 (4.4-11.0)
[2023-10-02 07:00] LABS: Anion Gap 7 (5-15); BUN 37 mg/dL (7-18); BUN/Creat Ratio 28.2 RATIO (10-20); Calcium,Total 9.4 mg/dL (8.5-10.1); Chloride 100 mmol/L (98-107); Creatinine, Serum 1.31 mg/dL (0.70-1.30); EST Glomerular Filtration Rate 56 mL/min (>60); Est Glom Filt Rate - Afr Amer 67 mL/min (>60); Estimated Creatinine Clearance 36.65 ml/min; Glucose 110 mg/dL (74-106); Potassium 3.8 mmol/L (3.5-5.1); Sodium Level 138 mmol/L (136-145)
[2023-10-02 07:35] VITALS: O2SAT 92
[2023-10-02 09:25] VITALS: BP 102/56; PULSE 105; RESP 18; TEMP 36.6; O2SAT 97
[2023-10-02] MEDS: guaiFENesin 1,200 MG Tablet 1200 MG PO (09:36)
[2023-10-02] MEDS: Furosemide 40 MG Tablet PO (09:36)
[2023-10-02] MEDS: Multivitamins,Therapeutic Tablet 1 TABLET PO (09:36)
[2023-10-02] MEDS: APIXABAN 5 MG TABLET PO (09:36)
[2023-10-02] MEDS: Pantoprazole Sodium 40 MG Tablet PO (09:41)
[2023-10-02 09:43] VITALS: PULSE 105
[2023-10-02] MEDS: Metoprolol Tartrate 50 MG Tablet PO (09:43)
[2023-10-02] MEDS: Lisinopril 2.5 MG Tablet PO (09:43)
[2023-10-02 10:20] VITALS: BP 106/74; PULSE 89
== END 2023-10-02 13:11 | disposition home health service (06) | DRG 291 ==
LOC: ED 13:20 → PCU 14:09
PROVIDERS: Internal Medicine; Nurse Practitioner; Admitting Provider Internal Medicine; Emergency Provider Student in an Organized Health Care Education/Training Program; PCP Internal Medicine; Visit Provider Internal Medicine
DX: I13.0 Hypertensive heart and chronic kidney disease with heart failure and stage 1 through stage 4 chronic kidney disease, or unspecified chronic kidney disease (principal); I50.33 Acute on chronic diastolic (congestive) heart failure; E43 Unspecified severe protein-calorie malnutrition; Z68.1 Body mass index [BMI] 19.9 or less, adult; E11.22 Type 2 diabetes mellitus with diabetic chronic kidney disease; G20.A1 Parkinson's disease without dyskinesia, without mention of fluctuations; Z79.01 Long term (current) use of anticoagulants; I48.0 Paroxysmal atrial fibrillation; N18.9 Chronic kidney disease, unspecified; E78.5 Hyperlipidemia, unspecified; K21.9 Gastro-esophageal reflux disease without esophagitis; R07.89 Other chest pain; R06.82 Tachypnea, not elsewhere classified; R53.1 Weakness; R09.02 Hypoxemia; Z79.899 Other long term (current) drug therapy
CPT/HCPCS: 36415; 71045; 78452; 80048; 83735; 83880; 84100; 84484; 85025; 85027; 92610; 93005; 93017; 94668; 97110; 97162; 97166; 97535; 97802; 99285; A9500; A4216; J1940; J2785